=== PATIENT | female | born 1985 | race Hispanic/Latino ===

== ENCOUNTER 2016-12-28 15:36 | Emergency (ER) | payer MEDICARE, MEDICAID ==
[2016-12-28 16:40] VITALS: BP 144/78; O2SAT 99
--- NOTE | 2016-12-28 16:43 | ED.PDOC ---
History of Present Illness - General Chief Complaint: Head Injury Stated Complaint: CASTREJON Time Seen by Provider: 12/28/16 16:37 Source: patient, family Exam Limitations: no limitations Additional Information: PT WAS RUNNING LAST PM. WOKE UP ON THE GROUND, CANNOT REMEMBER WHAT HAPPENED TO HER. C/O PAIN TO KNEE (R) CASTREJON, N/V - History of Present Illness Timing/Duration: other - LAST PM Severity: moderate Improving Factors: nothing Worsening Factors: nothing Associated Symptoms: headaches, nausea/vomiting, seizure - +/- PT IS UNSURE Allergies/Adverse Reactions: Allergies Pineapples Allergy (Uncoded 12/14/12 22:55) Home Medications: Ambulatory Orders Clonazepam [Klonopin] 1 mg PO BID #2 07/18/14 predniSONE [Prednisone] 40 mg PO DAILY #8 tab 04/29/15 Acetaminophen W/ Codeine [Tylenol W/ CODEINE #3] 1 ea PO Q6HR PRN #24 12/28/16 Review of Systems - Review of Systems Constitutional: Denies: chills, diaphoresis, fever EENTM: Denies: eye pain, blurred vision, ear pain, nose congestion Respiratory: Denies: cough, short of breath, wheezing Cardiology: Denies: chest pain, palpitations Gastrointestinal/Abdominal: States: nausea, vomiting. Denies: abdominal pain Musculoskeletal: States: joint pain. Denies: back pain, neck pain Neurological: States: headache. Denies: numbness, tingling, weakness Endocrine: Denies: excessive sweating, intolerance to cold, intolerance to heat Hematologic/Lymphatic: States: no symptoms reported Past Medical History (General) - Patient Medical History Hx Seizures: Yes Hx Asthma: Yes Hx Cardiac Disorders: Yes Hx Hypertension: Yes Hx Diabetes: Yes Hx Gastroesophageal Reflux: Yes - Vaccination History Hx Tetanus, Diphtheria Vaccination: Yes - Social History Hx Tobacco Use: Yes Hx Depression: Yes - Female History Hx Last Menstrual Period: 04/26/15 Patient : No Family Medical History - Family History Mother Family History: No Known Physical Exam - Physical Exam General Appearance: Alert, No apparent distress, Obese Eye Exam: bilateral normal Ears, Nose, Throat: normal ENT inspection, normal pharynx, other - NO EVIDENCE OF TRAUMA Neck: non-tender, full range of motion, supple, normal inspection Respiratory: lungs clear, normal breath sounds, no respiratory distress Cardiovascular/Chest: regular rate, rhythm, no murmur Gastrointestinal/Abdominal: normal bowel sounds, non tender, soft, no organomegaly Back Exam: normal inspection, no CVA tenderness, no vertebral tenderness Extremity: normal range of motion, non-tender, normal inspection, other - ABRASION TO R KNEE, MILD SWELLING, TTP, NO EFFUSION, NO BONY DEF, NVI Neurologic: no motor/sensory deficits, normal mood/affect, oriented x 3 Skin Exam: normal color, warm/dry Lymphatic: no adenopathy Progress - Progress Progress: 12/28/16 20:13 STILL C/O CASTREJON AND NAUSEA, - EKG/XRAY/CT XRAY: knee - ANGELLA CT Ordered: Yes - HEAD, C SPINE CT Interpretation Call Back: - BOTH NEG PER RADIOLOGY Departure - Departure Clinical Impression: Abrasion, knee Qualifiers: Encounter type: initial encounter Laterality: right Qualifier Code: (S80.211A) Abrasion, right knee, initial encounter Diabetes mellitus Qualifiers: Diabetes mellitus type: type 2 Diabetes mellitus complication status: without complication Qualifier Code: (E11.9) Type 2 diabetes mellitus without complications Contusion of scalp Qualifiers: Encounter type: initial encounter Qualifier Code: (S00.03XA) Contusion of scalp , initial encounter Time of Disposition: 20:19 Disposition: Discharge to Home or Self Care Condition: Good Departure Forms: ED Discharge - Pt. Copy, Patient Portal Self Enrollment Instructions: DI for Contusion Activity: increase activity as tolerated, walking as tolerated Prescriptions: Acetaminophen W/ Codeine [Tylenol W/ CODEINE #3] 1 ea PO Q6HR PRN #24 PRN Reason: Pain Home Medications: Ambulatory Orders Clonazepam [Klonopin] 1 mg PO BID #2 07/18/14 predniSONE [Prednisone] 40 mg PO DAILY #8 tab 04/29/15 Acetaminophen W/ Codeine [Tylenol W/ CODEINE #3] 1 ea PO Q6HR PRN #24 12/28/16
[2016-12-28] MEDS ORDERED: SODIUM CHLORIDE 0.9% 1000ML 1,000 ML IVS ONE (16:54)
[2016-12-28] MEDS ORDERED: MORPHINE SULFATE INJ 10 MG/ML VIAL IV ONE (16:56)
[2016-12-28] MEDS ORDERED: INSULIN, REG.(HUMAN) 100 U/ML VIAL SUBCU ONE (16:57)
[2016-12-28] MEDS ORDERED: ONDANSETRON INJ 4 MG/2 ML VIAL IV ONE (16:57)
--- NOTE | 2016-12-28 18:33 | CT ---
EXAM: Cervical Spine CLINICAL INDICATION: 31-year-old female status post fall. TECHNIQUE: Cervical spine CT was performed without contrast. Multiplanar reformatted images were provided. COMPARISON: None. FINDINGS: There is normal alignment of the cervical spine without fracture or subluxation. The facets are normal in alignment bilaterally. The posterior elements including the spinous processes are intact. Straightening of the cervical spine which may be secondary to positioning for the examination. Morphology and attenuation of the vertebral bodies and intervertebral disc spaces is within normal limits. The pre-and paravertebral soft tissues are within normal limits. The airway is patent. Extraspinal imaging is within normal limits. IMPRESSION: 1. Straightening of the cervical spine which may be secondary to positioning for the examination versus spasm. 2. No fracture or acute subluxation. Electronically signed by: Vero Huang MD 12/28/2016 6:33 PM MERCHANDISE CLERK
--- NOTE | 2016-12-28 18:35 | RAD ---
EXAM: Knee,Right 2 or More Views CLINICAL INDICATION: 31-year-old female status post fall. TECHNIQUE: Two views RIGHT knee were obtained in AP, and lateral projections COMPARISON: None. FINDINGS: There is no fracture or dislocation. The joint spaces are preserved. No soft tissue abnormalities are seen. Minimal degenerative changes noted with sharpening of the tibial spines and tiny tricompartmental osteophytes. IMPRESSION: No acute radiographic abnormality. Electronically signed by: Vero Huang MD 12/28/2016 6:34 PM SENIOR INFORMATION SECURITY CONSULTANT
[2016-12-28] MEDS ORDERED: KETOROLAC TROMETHAMINE INJ 30 MG/ML VIAL IV ONE (20:12)
--- NOTE | 2017-01-07 00:16 | CT ---
EXAM: Head CLINICAL INDICATION: 31-year-old female status post fall. COMPARISON: None. TECHNIQUE: CT brain without contrast. FINDINGS: The ventricles, sulci, and cisterns are within normal limits. The rajput-white matter differentiation is preserved. There is no mass effect, midline shift, intra- or extra-axial fluid collection/acute hemorrhage. The osseous structures are unremarkable. The paranasal sinuses and mastoid air cells are clear. IMPRESSION: No acute intracranial abnormalities. Electronically signed by: Vero Huang MD 12/28/2016 6:34 PM ELECTRICAL INSTRUMENT TECHNICIAN
--- NOTE | 2017-01-07 00:16 | RAD ---
EXAM: Knee,Right 2 or More Views CLINICAL INDICATION: 31-year-old female status post fall. TECHNIQUE: Two views RIGHT knee were obtained in AP, and lateral projections COMPARISON: None. FINDINGS: There is no fracture or dislocation. The joint spaces are preserved. No soft tissue abnormalities are seen. Minimal degenerative changes noted with sharpening of the tibial spines and tiny tricompartmental osteophytes. IMPRESSION: No acute radiographic abnormality. Electronically signed by: Vero Huang MD 12/28/2016 6:34 PM RETAIL PHARMACY MANAGER
== END 2016-12-28 20:47 | disposition home or self-care (01) ==
LOC: ER 15:36
DX: S00.03XA Contusion of scalp, initial encounter (principal); S80.211A Abrasion, right knee, initial encounter; E11.9 Type 2 diabetes mellitus without complications; F32.9 Major depressive disorder, single episode, unspecified; I10 Essential (primary) hypertension; K21.9 Gastro-esophageal reflux disease without esophagitis; R56.9 Unspecified convulsions; Z87.891 Personal history of nicotine dependence; Z91.018 Allergy to other foods; Z79.899 Other long term (current) drug therapy
CPT/HCPCS: 36415; 36600; 70450; 72125; 73560; 80053; 81001; 82803; 82805; 82948; 84703; 85025; J1885; J2270; J2405; J7030

== ENCOUNTER 2017-01-23 15:31 | Emergency (ER) | payer MEDICARE, MEDICAID ==
[2017-01-23 15:55] VITALS: TEMP 98.1
[2017-01-23] MEDS ORDERED: SODIUM CHLORIDE 0.9% 1000ML 1,000 ML IVS ONE (16:14)
[2017-01-23] MEDS ORDERED: ONDANSETRON INJ 4 MG/2 ML VIAL IV ONE (16:14)
--- NOTE | 2017-01-23 17:10 | ED.PDOC ---
History of Present Illness - General Chief Complaint: GI Problem Stated Complaint: fever, bodyaches, nausea and vomiting Time Seen by Provider: 01/23/17 15:55 Source: patient, RN notes reviewed, Vital Signs reviewed Exam Limitations: no limitations - History of Present Illness Initial Comments: Patient is a 31 y/o female who has had nausea and vomiting for the past 2 days. The entire family has had a GI bug, however her illness continues. The last time she threw up was 3 hours ago. She had a fever of 100.0 yesterday. She has a headache, sore throat, diarrhea, abdominal pain, back pain, and a nodule on her back that seems to have grown larger in the past 2 days. Timing/Duration: other - 2 days Severity: moderate Improving Factors: nothing Worsening Factors: eating Associated Symptoms: chest pain, cough, fever/chills, headaches, loss of appetite, malaise, nausea/vomiting, shortness of breath, weakness Allergies/Adverse Reactions: Allergies Pineapples Allergy (Uncoded 01/23/17 15:55) Home Medications: Ambulatory Orders Clonazepam [Klonopin] 1 mg PO BID #2 07/18/14 predniSONE [Prednisone] 40 mg PO DAILY #8 tab 04/29/15 Acetaminophen W/ Codeine [Tylenol W/ CODEINE #3] 1 ea PO Q6HR PRN #24 12/28/16 Ondansetron [Zofran Odt] 4 mg PO Q8H PRN #10 tab 01/23/17 Review of Systems - Review of Systems Constitutional: States: chills, fever, malaise, weakness EENTM: States: ear pain, nose congestion, throat swelling Respiratory: States: cough, short of breath Cardiology: States: chest pain Gastrointestinal/Abdominal: States: abdominal pain, diarrhea, nausea, vomiting Genitourinary: States: no symptoms reported Musculoskeletal: States: back pain, joint pain, muscle pain, neck pain Skin: States: lumps, other - sensitive to touch Neurological: States: headache, numbness, paresthesia, pre-existing deficit, tingling, weakness Endocrine: States: intolerance to cold, intolerance to heat, unexplained weight loss - Although Patient has tried to increase exercise and diet. Hematologic/Lymphatic: States: easy bruising Past Medical History (General) - Patient Medical History Hx Seizures: Yes Hx Asthma: Yes Hx Cardiac Disorders: Yes Hx Hypertension: Yes Hx Diabetes: Yes - type 1 Hx Gastroesophageal Reflux: Yes - Vaccination History Hx Tetanus, Diphtheria Vaccination: No Hx Influenza Vaccination: No Hx Pneumococcal Vaccination: No - Social History Hx Tobacco Use: Yes Hx Alcohol Use: No Hx Substance Use: No Hx Substance Use Treatment: No Hx Depression: Yes - Activities of Daily Living Hospice Agency (if applicable):: None - Female History Patient is a Female of Child Bearing Age (10 -59 yrs old): Yes Hx Last Menstrual Period: 04/26/15 Patient : - lmp unknow "I'm irregular" Family Medical History - Family History Mother Family History: No Known Physical Exam - Physical Exam General Appearance: Alert, Comfortable, No apparent distress Ears, Nose, Throat: hearing grossly normal, normal ENT inspection, normal pharynx Neck: non-tender, full range of motion, supple, normal inspection Respiratory: lungs clear, normal breath sounds, no respiratory distress, no accessory muscle use Cardiovascular/Chest: regular rate, rhythm, no edema, no gallop, no murmur Gastrointestinal/Abdominal: normal bowel sounds, soft, no organomegaly, no pulsatile mass, tenderness - generalized Back Exam: normal inspection Extremity: normal range of motion, non-tender, normal inspection, no pedal edema Neurologic: alert, normal mood/affect, oriented x 3 Skin Exam: other - Nodule left mid-back, soft, nontender Progress - Progress Progress: 01/23/17 17:55 Patient was given Zofran and a liter of NS. She did not throw up during her ED stay and did feel better at the time of discharge. Because of her Type 1 diabetes, I informed her that if she did not improve or started getting worse, she needed to come back to the ED. Offered Patient insulin injection, however she prefers to take it when she gets home. 01/23/17 18:12 - Results/Orders Results/Orders: 01/23/17 01/23/17 15:45 17:50 Temperature 98.1 F Pulse Rate [ 122 H 89 pulse ox] Respiratory 20 20 Rate Blood Pressure 122/83 105/73 [Left Arm] O2 Sat by Pulse 96 98 Oximetry 01/23/17 16:25 STREP A SCREEN CULTURE Stat Laboratory Results WBC 8.2 K/mm3 (4.8-10.8) 01/23/17 16:40 RBC 4.35 M/mm3 (4.20-5.40) 01/23/17 16:40 Hgb 13.9 gm/dL (12.0-16.0) 01/23/17 16:40 Hct 39.5 % (36.0-47.0) 01/23/17 16:40 MCV 90.8 fl (81.0-99.0) 01/23/17 16:40 MCH 31.9 pg (27.0-31.0) H 01/23/17 16:40 MCHC 35.2 g/dL (33.0-37.0) 01/23/17 16:40 RDW 13.4 % (11.5-14.5) 01/23/17 16:40 Plt Count 284 K/mm3 (130-400) 01/23/17 16:40 MPV 7.5 fl (7.40-10.4) 01/23/17 16:40 Absolute Neuts (auto) 4.60 K/uL (1.8-6.8) 01/23/17 16:40 Absolute Lymphs (auto) 3.20 K/uL (1.0-3.4) 01/23/17 16:40 Absolute Monos (auto) 0.30 K/uL (0.2-0.8) 01/23/17 16:40 Absolute Eos (auto) 0.00 K/uL (0.0-0.4) 01/23/17 16:40 Absolute Basos (auto) 0.00 K/uL (0.0-0.1) 01/23/17 16:40 Neutrophils % 56.1 % (42.0-78.0) 01/23/17 16:40 Lymphocytes % 39.2 % (20.0-50.0) 01/23/17 16:40 Monocytes % 3.7 % (2.0-9.0) 01/23/17 16:40 Eosinophils % 0.4 % (1.0-5.0) L 01/23/17 16:40 Basophils % 0.6 % (0.0-2.0) 01/23/17 16:40 Sodium 132 mmol/L (135-145) L 01/23/17 16:40 Potassium 3.9 mmol/L (3.6-5.0) 01/23/17 16:40 Chloride 93 mmol/L (101-111) L 01/23/17 16:40 Carbon Dioxide 28 mmol/L (21-31) 01/23/17 16:40 Anion Gap 14.9 (12-18) 01/23/17 16:40 BUN 11 mg/dL (7-18) 01/23/17 16:40 Creatinine 0.48 mg/dL (0.6-1.3) L 01/23/17 16:40 BUN/Creatinine Ratio 22.9 (10-20) H 01/23/17 16:40 Random Glucose 348 mg/dL (70-105) H 01/23/17 16:40 Serum Osmolality 277.8 mOsm/L (275-295) 01/23/17 16:40 Calcium 9.3 mg/dL (8.4-10.2) 01/23/17 16:40 Total Bilirubin < 0.2 mg/dL (0.2-1.0) L 01/23/17 16:40 AST 23 IU/L (10-42) 01/23/17 16:40 ALT 22 IU/L (10-60) 01/23/17 16:40 Alkaline Phosphatase 79 IU/L (42-121) 01/23/17 16:40 Serum Total Protein 7.2 gm/dL (6.4-8.2) 01/23/17 16:40 Albumin 3.9 g/dl (3.2-5.5) 01/23/17 16:40 Globulin 3.3 gm/dL (2.3-3.5) 01/23/17 16:40 Albumin/Globulin Ratio 1.2 (1.1-1.9) 01/23/17 16:40 Lipase 20 U/L (22-51) L 01/23/17 16:40 Serum HCG, Qual Negative 01/23/17 16:25 Urine Color Yellow (Yellow) 01/23/17 16:25 Urine Appearance Clear (Clear) 01/23/17 16:25 Urine pH 5.5 (4.5-7.8) 01/23/17 16:25 Ur Specific [place] 1.020 (1.005-1.030) 01/23/17 16:25 Urine Protein Negative mg/dL 01/23/17 16:25 Urine Glucose (UA) 500 mg/dL (Negative) H 01/23/17 16:25 Urine Ketones 15 mg/dL (NEGATIVE) H 01/23/17 16:25 Urine Blood Negative (Negative) 01/23/17 16:25 Urine Nitrite Negative 01/23/17 16:25 Urine Bilirubin Negative (NEGATIVE) 01/23/17 16:25 Urine Urobilinogen 0.2 mg/dL (0.2-1.0) 01/23/17 16:25 Ur Leukocyte Esterase Negative (Negative) 01/23/17 16:25 Urine RBC 0-1 /hpf 01/23/17 16:25 Urine WBC 0-1 /hpf 01/23/17 16:25 Ur Epithelial Cells 3-5 /hpf 01/23/17 16:25 Amorphous Sediment 1+ 01/23/17 16:25 Urine Bacteria 0 01/23/17 16:25 Departure - Departure Clinical Impression: Gastroenteritis, Dehydration with hyponatremia, Dehydration with hyponatremia, Dehydration, mild Diabetes mellitus Qualifiers: Diabetes mellitus type: type 1 Diabetes mellitus complication status: with hyperglycemia Qualifier Code: (E10.65) Type 1 diabetes mellitus with hyperglycemia Time of Disposition: 17:59 Disposition: Discharge to Home or Self Care Condition: Good Departure Forms: ED Discharge - Pt. Copy, Patient Portal Self Enrollment Instructions: DI for Viral Gastroenteritis -- Adult, Gastroenteritis Diet, Viral Gastroenteritis Diet: full liquid diet, other - Advance to BRAT diet as tolerated. Prescriptions: Ondansetron [Zofran Odt] 4 mg PO Q8H PRN #10 tab PRN Reason: Nausea/Vomiting Home Medications: Ambulatory Orders Clonazepam [Klonopin] 1 mg PO BID #2 07/18/14 predniSONE [Prednisone] 40 mg PO DAILY #8 tab 04/29/15 Acetaminophen W/ Codeine [Tylenol W/ CODEINE #3] 1 ea PO Q6HR PRN #24 12/28/16 Ondansetron [Zofran Odt] 4 mg PO Q8H PRN #10 tab 01/23/17 Additional Instructions: Stay well-hydrated. Drink one bottle of sport drink any day you have vomiting or diarrhea. Follow up if symptoms persist or worsen. Glucose is 348 so take sliding scale insulin accordingly when you get home.
[2017-01-23 17:51] VITALS: O2SAT 98
[2017-01-23 18:23] VITALS: BP 112/68
== END 2017-01-23 18:23 | disposition home or self-care (01) ==
LOC: ER 15:31
DX: K52.9 Noninfective gastroenteritis and colitis, unspecified (principal); E87.1 Hypo-osmolality and hyponatremia; E86.0 Dehydration; E10.65 Type 1 diabetes mellitus with hyperglycemia; I10 Essential (primary) hypertension; J45.909 Unspecified asthma, uncomplicated; Z91.018 Allergy to other foods; Z79.899 Other long term (current) drug therapy; Z87.891 Personal history of nicotine dependence
CPT/HCPCS: 36415; 80053; 81001; 83690; 84703; 85025; 87070; 87502; 87651; J2405; J7030

== ENCOUNTER 2017-01-25 09:50 | Emergency (ER) | payer MEDICARE, MEDICAID ==
[2017-01-25] MEDS ORDERED: SODIUM CHLORIDE 0.9% 1000ML 1,000 ML IVS ONE (10:35)
[2017-01-25 10:36] VITALS: TEMP 98.1
--- NOTE | 2017-01-25 10:39 | ED.PDOC ---
History of Present Illness - General Chief Complaint: General Stated Complaint: aches, "feels bad" still, nausea Time Seen by Provider: 01/25/17 10:23 Source: patient Exam Limitations: no limitations - History of Present Illness Initial Comments: Patient is a 31 you F with IDDM who presents with N/V x 5 days and diarrhea x 2 days. She was here 2 days ago for the same and prescribed zofran and received fluids. She is non-compliant with her diabetes treatment regimen and does not take her blood sugars regularly. She says she has a "tumor" on her left side that was noticed one year ago but has not followed up with it as recommended. Patient has been able to eat but thinks that she vomits a significant amount of her food up. Has left sided abdominal pain that is constant and has been associated with this episode of N/V. Diarrhea is non-bloody. No fevers. No other complaints. Timing/Duration: other - 5 days Severity: moderate Improving Factors: nothing Worsening Factors: nothing Associated Symptoms: nausea/vomiting, weakness Allergies/Adverse Reactions: Allergies Pineapples Allergy (Uncoded 01/23/17 15:55) Home Medications: Ambulatory Orders Clonazepam [Klonopin] 1 mg PO BID #2 07/18/14 predniSONE [Prednisone] 40 mg PO DAILY #8 tab 04/29/15 Acetaminophen W/ Codeine [Tylenol W/ CODEINE #3] 1 ea PO Q6HR PRN #24 12/28/16 Ondansetron [Zofran Odt] 4 mg PO Q8H PRN #10 tab 01/23/17 Ciprofloxacin [Cipro] 500 mg PO BID #20 tab 01/25/17 Metronidazole 500 mg PO BID #20 tab 01/25/17 Review of Systems - Review of Systems Constitutional: States: see HPI EENTM: States: no symptoms reported Respiratory: States: no symptoms reported Cardiology: States: no symptoms reported Genitourinary: States: see HPI Musculoskeletal: States: no symptoms reported Skin: States: no symptoms reported Neurological: States: no symptoms reported Endocrine: States: no symptoms reported Hematologic/Lymphatic: States: no symptoms reported Past Medical History (General) - Patient Medical History Hx Seizures: Yes Hx Asthma: Yes Hx Cardiac Disorders: Yes Hx Hypertension: Yes Hx Diabetes: Yes - type 1 Hx Gastroesophageal Reflux: Yes - Vaccination History Hx Tetanus, Diphtheria Vaccination: No Hx Influenza Vaccination: No Hx Pneumococcal Vaccination: No - Social History Hx Tobacco Use: Yes Hx Alcohol Use: No Hx Substance Use: No Hx Substance Use Treatment: No Hx Depression: Yes - Female History Hx Last Menstrual Period: 04/26/15 Patient : - lmp unknow "I'm irregular" Family Medical History - Family History Mother Family History: No Known Physical Exam - Physical Exam General Appearance: Alert Eye Exam: bilateral normal Ears, Nose, Throat: normal ENT inspection Neck: non-tender, full range of motion, supple, normal inspection Respiratory: lungs clear Cardiovascular/Chest: regular rate, rhythm Gastrointestinal/Abdominal: normal bowel sounds, non tender, soft Extremity: normal inspection, no pedal edema Skin Exam: normal color Lymphatic: no adenopathy Progress - Progress Progress: 01/25/17 15:25 Patient continued to complain of LLQ pain. She had one liter of NS IV. CT ab/ pelvis showed colitis of the transverse and descending colon. RX for ciprofloxacin and metronidazole given. 01/25/17 15:26 Laboratory Tests 01/25/17 10:45 WBC 7.9 RBC 4.43 Hgb 13.9 Hct 40.2 MCV 90.7 MCH 31.4 H MCHC 34.6 RDW 13.3 Plt Count 236 MPV 7.3 L Absolute Neuts (auto) 6.10 Absolute Lymphs (auto) 1.40 Absolute Monos (auto) 0.40 Absolute Eos (auto) 0.00 Absolute Basos (auto) 0.00 Neutrophils % 77.8 Lymphocytes % 17.1 L Monocytes % 4.5 Eosinophils % 0.2 L Basophils % 0.4 Sodium 133 L Potassium 3.7 Chloride 93 L Carbon Dioxide 28 Anion Gap 15.7 BUN 9 Creatinine < 0.40 L BUN/Creatinine Ratio 22.0 H Random Glucose 295 H Serum Osmolality 276.0 Calcium 9.3 Total Bilirubin 0.9 AST 19 ALT 24 Alkaline Phosphatase 92 Serum Total Protein 8.0 Albumin 4.3 Globulin 3.7 H Albumin/Globulin Ratio 1.2 Lipase 15 L D Serum HCG, Qual Negative Departure - Departure Clinical Impression: Colitis Departure Forms: ED Discharge - Pt. Copy, Patient Portal Self Enrollment Diet: diabetic diet Activity: increase activity as tolerated Prescriptions: Ciprofloxacin [Cipro] 500 mg PO BID #20 tab Metronidazole 500 mg PO BID #20 tab Home Medications: Ambulatory Orders Clonazepam [Klonopin] 1 mg PO BID #2 07/18/14 predniSONE [Prednisone] 40 mg PO DAILY #8 tab 04/29/15 Acetaminophen W/ Codeine [Tylenol W/ CODEINE #3] 1 ea PO Q6HR PRN #24 12/28/16 Ondansetron [Zofran Odt] 4 mg PO Q8H PRN #10 tab 01/23/17 Ciprofloxacin [Cipro] 500 mg PO BID #20 tab 01/25/17 Metronidazole 500 mg PO BID #20 tab 01/25/17 Additional Instructions: Take medication as prescribed. Do not drink alcohol while taking the medication or for at least ten days after stopping the medication. Increase oral fluids.
[2017-01-25] MEDS: IBUPROFEN 200 MG TAB PO ONE ×2 (10:47→11:02)
[2017-01-25] MEDS ORDERED: IBUPROFEN IVPB ONE (11:01)
[2017-01-25] MEDS ORDERED: SODIUM CHLORIDE 0.9% IVPB ONE (11:01)
[2017-01-25] MEDS ORDERED: SODIUM CHLORIDE 0.9% 250ML 250 ML ONE (11:09)
[2017-01-25] MEDS ORDERED: KCL 20 MEQ/NS 1,000 ML IVS PRN (12:12)
--- NOTE | 2017-01-25 15:18 | CT ---
Study: CT abdomen and pelvis. Indication: abdominal pain/N/V Technique: Venous phase CT imaging of the abdomen and pelvis obtained after intravenous administration of contrast. Comparison: None. Findings: Mild cardiomegaly. Lung bases clear. Mild hepatomegaly. Gallbladder, pancreas, spleen, adrenal glands, kidneys, bladder, uterus, and adnexa are unremarkable. Minimal wall thickening throughout the descending colon and transverse colon calculates under distention or colitis. Stomach, small bowel, and appendix unremarkable. No free fluid. No free air. No pathologically enlarged abdominal or pelvic lymphadenopathy. Atherosclerosis aorta. Tiny fat-containing umbilical hernia. No acute osseous abnormality. Impression: Findings concerning for colitis of the descending and transverse colon, however underdistention could give this appearance. Additional findings as above. Electronically signed by: Ronny Willingham MD 01/25/2017 3:17 PM CDT
[2017-01-25] MEDS ORDERED: KETOROLAC TROMETHAMINE INJ 30 MG/ML VIAL IM ONE (16:04)
[2017-01-25 16:30] VITALS: BP 112/79; O2SAT 96
== END 2017-01-25 16:20 | disposition home or self-care (01) ==
LOC: ER 09:50
DX: K52.9 Noninfective gastroenteritis and colitis, unspecified (principal); E10.9 Type 1 diabetes mellitus without complications; I10 Essential (primary) hypertension; G40.909 Epilepsy, unspecified, not intractable, without status epilepticus; J45.909 Unspecified asthma, uncomplicated; Z91.018 Allergy to other foods; Z79.899 Other long term (current) drug therapy; Z87.891 Personal history of nicotine dependence
CPT/HCPCS: 36415; 74177; 80048; 80053; 83690; 84703; 85025; 87502; 87651; J1885; J3480; J7030; J7050

== ENCOUNTER 2017-02-10 19:03 | Observation (INO) | payer MEDICARE, MEDICAID ==
[2017-02-10] MEDS ORDERED: NITROGLYCERIN 0.4 MG 25 EA TAB SL ONE ×3 (19:07→19:09)
[2017-02-10] MEDS ORDERED: diazePAM INJ 10 MG/2 ML SYG ONE (19:08)
[2017-02-10] MEDS ORDERED: diazePAM INJ 10 MG/2 ML SYG IV ONE (19:25)
[2017-02-10] MEDS ORDERED: NITROGLYCERIN 2% 1 GM UD TOP ONE (19:45)
--- NOTE | 2017-02-10 19:52 | RAD ---
EXAM DESCRIPTION: Chest,1 View CLINICAL HISTORY: chest pain COMPARISON: None FINDINGS: Cardiac silhouette is within normal limits. EKG leads project over the chest. Patient is rotated. Decreased lung volumes could be secondary to underinflation. There is no focal parenchymal or pleural disease. There is no acute osseous process visualized. IMPRESSION: No evidence of acute cardiopulmonary disease. Electronically signed by: Estrada Olivares MD 02/10/2017 7:51 PM CDT
--- NOTE | 2017-02-10 20:19 | ED.PDOC ---
History of Present Illness - General Chief Complaint: Chest Pain/[place] Stated Complaint: CHEST PAIN Time Seen by Provider: 02/10/17 19:58 Source: patient, RN notes reviewed, Vital Signs reviewed, family, EMS Exam Limitations: clinical condition - History of Present Illness Initial Comments: Patient is a 31 y/o female who was brought in by EMS with severe left-sided chest pain. It is difficult to get any information from patient as she is very anxious. [id number] she has a history of seizures and bipolar disorder and has been out of her tegretol for the past 3 days. She has recently changed doctors, but got most of her chronic medication filled on 01/25/2017. Patient has been taking a diet medication for the past week. It is a yellow and black capsule that she bought from a lady that is in a bottle with a white paper label on it. Patient is a very poor historian and it is difficult to get definitive answers from her about her health and medications. Her helps, somewhat, but is not sure exactly what and how much medication she takes. Timing/Duration: unsure Severity: severe Improving Factors: nothing Worsening Factors: nothing Associated Symptoms: chest pain, nausea/vomiting, shortness of breath Allergies/Adverse Reactions: Allergies Pineapples Allergy (Uncoded 02/10/17 19:24) Home Medications: Ambulatory Orders Carbamazepine [Tegretol] 600 mg PO BID 01/27/17 Insulin Detemir [Levemir] 0 unit SUBCU BID 01/27/17 Insulin Regular (Human) [Humulin R] 0 unit IJ QID PRN 01/27/17 Lisinopril & Hydrochlorothiazi [Lisinopril/Hctz 20-25 mg] 1 tab PO BID 01/27/17 Lovastatin 20 mg PO DAILY 01/27/17 Amitriptyline HCl [Elavil] 25 mg PO DAILY 02/10/17 Celecoxib [Celebrex] 200 mg PO BID 02/10/17 Clonazepam 2 mg PO TID 02/10/17 Lisinopril 20 mg PO BEDTIME 02/10/17 Pregabalin [Lyrica] 100 mg PO BID 02/10/17 Review of Systems - Review of Systems Constitutional: States: no symptoms reported EENTM: States: no symptoms reported Respiratory: States: short of breath Cardiology: States: chest pain, palpitations Gastrointestinal/Abdominal: States: nausea Genitourinary: States: no symptoms reported Musculoskeletal: States: back pain, neck pain Skin: States: no symptoms reported Neurological: States: anxiety Endocrine: States: no symptoms reported Hematologic/Lymphatic: States: no symptoms reported All other Systems: Reviewed and Negative Past Medical History (General) - Patient Medical History Hx Seizures: Yes Hx Stroke: No Hx Asthma: Yes Hx Cardiac Disorders: Yes Hx Hypertension: Yes Hx Diabetes: Yes - type 1 Hx Gastroesophageal Reflux: Yes - Vaccination History Hx Tetanus, Diphtheria Vaccination: No Hx Influenza Vaccination: No Hx Pneumococcal Vaccination: No - Social History Hx Tobacco Use: Yes Hx Alcohol Use: No Hx Substance Use: No Hx Substance Use Treatment: No Hx Depression: Yes - Female History Hx Last Menstrual Period: 04/26/15 Patient : - lmp unknow "I'm irregular" Family Medical History - Family History Mother Family History: No Known Living Status: Still Living Physical Exam - Physical Exam General Appearance: Anxious, Obvious distress, Obese, Unkempt Eye Exam: bilateral normal Ears, Nose, Throat: hearing grossly normal, normal ENT inspection Neck: tender lateral - Left Respiratory: lungs clear, normal breath sounds, no respiratory distress, no accessory muscle use, other - Left chest tenderness, however does not exactly replicate pain Cardiovascular/Chest: no gallop, no murmur, tachycardia Gastrointestinal/Abdominal: normal bowel sounds, non tender, soft, no organomegaly Extremity: normal range of motion, normal inspection Neurologic: alert, oriented x 3, depressed affect Skin Exam: normal color, warm/dry Progress - Results/Orders Results/Orders: 02/10/17 02/10/17 02/10/17 19:05 19:10 20:05 Temperature 100.2 F H Pulse Rate [ 131 H 135 H 92 H apical] Respiratory 32 H 32 H 20 Rate Blood Pressure 135/69 125/83 [left radial] 02/10/17 02/10/17 02/10/17 20:26 21:19 22:00 Temperature Pulse Rate [ 112 H 105 H 106 H apical] Respiratory 20 18 Rate Blood Pressure 122/89 113/62 119/77 [left radial] 02/10/17 22:14 Temperature Pulse Rate [ 98 H apical] Respiratory 18 Rate Blood Pressure 123/84 [left radial] 02/10/17 19:05 EKG STAT 02/10/17 19:30 EKG STAT 02/10/17 22:02 URINE DRUG SCREEN, 7 ASSAY Stat 02/10/17 22:15 EKG STAT 02/10/17 22:17 CARDIAC ENZYME GROUP Stat 02/10/17 22:44 Magnesium Sulfate Premix 2Gm 2 gm Premix Bag 1 bag IVPB ONCE Laboratory Results WBC 9.8 K/mm3 (4.8-10.8) 02/10/17 19:20 RBC 4.40 M/mm3 (4.20-5.40) 02/10/17 19:20 Hgb 13.7 gm/dL (12.0-16.0) 02/10/17 19:20 Hct 39.8 % (36.0-47.0) 02/10/17 19:20 MCV 90.5 fl (81.0-99.0) 02/10/17 19:20 MCH 31.1 pg (27.0-31.0) H 02/10/17 19:20 MCHC 34.4 g/dL (33.0-37.0) 02/10/17 19:20 RDW 13.5 % (11.5-14.5) 02/10/17 19:20 Plt Count 310 K/mm3 (130-400) 02/10/17 19:20 MPV 7.7 fl (7.40-10.4) 02/10/17 19:20 Absolute Neuts (auto) 5.70 K/uL (1.8-6.8) 02/10/17 19:20 Absolute Lymphs (auto) 3.70 K/uL (1.0-3.4) H 02/10/17 19:20 Absolute Monos (auto) 0.40 K/uL (0.2-0.8) 02/10/17 19:20 Absolute Eos (auto) 0.00 K/uL (0.0-0.4) 02/10/17 19:20 Absolute Basos (auto) 0.10 K/uL (0.0-0.1) 02/10/17 19:20 Neutrophils % 57.7 % (42.0-78.0) 02/10/17 19:20 Lymphocytes % 37.5 % (20.0-50.0) 02/10/17 19:20 Monocytes % 3.9 % (2.0-9.0) 02/10/17 19:20 Eosinophils % 0.4 % (1.0-5.0) L 02/10/17 19:20 Basophils % 0.5 % (0.0-2.0) 02/10/17 19:20 PT 12.4 SECONDS (9.4-12.5) 02/10/17 19:20 INR 1.100 02/10/17 19:20 PTT (SP) 29.7 SECONDS (25.1-36.5) 02/10/17 19:20 D-Dimer, Quantitative < 230 ng/mL (0-230) 02/10/17 19:50 Sodium 135 mmol/L (135-145) 02/10/17 19:20 Potassium 3.1 mmol/L (3.6-5.0) L 02/10/17 19:20 Chloride 93 mmol/L (101-111) L 02/10/17 19:20 Carbon Dioxide 27 mmol/L (21-31) 02/10/17 19:20 Anion Gap 18.1 (12-18) H 02/10/17 19:20 BUN 6 mg/dL (7-18) L 02/10/17 19:20 Creatinine 0.43 mg/dL (0.6-1.3) L 02/10/17 19:20 BUN/Creatinine Ratio 14.0 (10-20) 02/10/17 19:20 Random Glucose 266 mg/dL (70-105) H 02/10/17 19:20 Serum Osmolality 277.0 mOsm/L (275-295) 02/10/17 19:20 Calcium 9.6 mg/dL (8.4-10.2) 02/10/17 19:20 Magnesium 1.5 mg/dL (1.8-2.5) L 02/10/17 19:20 Creatine Kinase 32 IU/L (26-140) 02/10/17 22:17 CK-MB (CK-2) 1.5 ng/mL (0.0-4.4) 02/10/17 19:20 CK-MB (CK-2) % Not Reportable 02/10/17 19:20 Troponin I < 0.02 ng/mL (0.01-0.05) 02/10/17 22:17 B-Natriuretic Peptide < 5.0 pg/ml (0-100) 02/10/17 19:50 Carbamazepine < 2.0 ug/mL (4.0-12.0) L 02/10/17 19:20 - EKG/XRAY/CT EKG: Sinus, Tachy - 114, no ST T wave changes, Unchanged from - EKG of 04/28/2015 Comments: NML axis, NML intervals, Sinus tachycardia XRAY: chest Xray Comments: No acute process - Additional EKG/XRAY/Consults EKG #2: Sinus - 92 bpm, nonspecific ST T wave Chg - ? abnormal QRS-T angle, Changed from - EKG #1, now NSR Comments: NML axis, Prolonged QT, Abnormal EKG Departure - Departure Clinical Impression: Hypokalemia, Hypomagnesemia Chest pain Qualifiers: Chest pain type: unspecified Qualifier Code: (R07.9) Chest pain, unspecified Medication withdrawal Qualifiers: Substance type: other psychoactive substance Qualifier Code: (F19.939) Other psychoactive substance use, unspecified with withdrawal, unspecified Diabetes mellitus Qualifiers: Diabetes mellitus type: type 2 Diabetes mellitus complication status: with unspecified complications Qualifier Code: (E11.8) Type 2 diabetes mellitus with unspecified complications Time of Disposition: 22:58 Disposition: Admit Patient Condition: Good Home Medications: Ambulatory Orders Carbamazepine [Tegretol] 600 mg PO BID 01/27/17 Insulin Detemir [Levemir] 0 unit SUBCU BID 01/27/17 Insulin Regular (Human) [Humulin R] 0 unit IJ QID PRN 01/27/17 Lisinopril & Hydrochlorothiazi [Lisinopril/Hctz 20-25 mg] 1 tab PO BID 01/27/17 Lovastatin 20 mg PO DAILY 01/27/17 Amitriptyline HCl [Elavil] 25 mg PO DAILY 02/10/17 Celecoxib [Celebrex] 200 mg PO BID 02/10/17 Clonazepam 2 mg PO TID 02/10/17 Lisinopril 20 mg PO BEDTIME 02/10/17 Pregabalin [Lyrica] 100 mg PO BID 02/10/17 Decision To Admit - Decistion To Admit Decision to Admit Reason: Medical Nature Decision to Admit Date: 02/10/17 Decision to Admit Time: 22:45
[2017-02-10] MEDS ORDERED: MAGNESIUM SULFATE PREMIX 2GM 2 GM in PREMIX BAG 1 BAG IVPB ONE (22:44)
[2017-02-10] MEDS ORDERED: MAGNESIUM SULFATE PREMIX 2GM 50 ML IVPB ONE (23:16)
[2017-02-11] MEDS ORDERED: ACETAMINOPHEN 325 MG TAB PO PRN (00:07)
[2017-02-11] MEDS ORDERED: NITROGLYCERIN 0.4 MG 25 EA TAB SL PRN (00:07)
[2017-02-11] MEDS ORDERED: ASPIRIN (CHEWABLE) 81 MG TAB PO ONE (00:07)
[2017-02-11] MEDS ORDERED: IV SET AND CAP CHANGE INJ INJ SCH (00:30)
[2017-02-11] MEDS ORDERED: carBAMazepine 200 MG TAB PO ONE (02:24)
[2017-02-11] MEDS ORDERED: ZOLPIDEM TARTRATE 10 MG TAB PO PRN (02:24)
[2017-02-11] MEDS ORDERED: DEXTROSE 50% 25 GM/50 ML SYG IV PRN (02:28)
[2017-02-11] MEDS ORDERED: GLUCAGON INJ 1 MG VIAL SUBCU PRN (02:28)
[2017-02-11] MEDS ORDERED: SODIUM CHLORIDE 0.9% 1000ML 1,000 ML ONE (02:55)
[2017-02-11] MEDS ORDERED: POTASSIUM CHLORIDE 40mEq 20ML VIAL ONE (02:56)
[2017-02-11] MEDS ORDERED: NITROGLYCERIN 0.4 MG/HR PATCH TOP SCH (03:00)
[2017-02-11] MEDS: KCL 40MEQ/NS 1,000 ML IVS PRN ×2 (03:12→11:24)
[2017-02-11] MEDS: SODIUM CHLORIDE 0.9% (FLUSH) 10 ML SYG IV PRN ×2 (03:13→06:43)
[2017-02-11] MEDS: PREGABALIN 100 MG CAP PO SCH ×2 (03:14→10:08)
[2017-02-11] MEDS: HYDROcodone 10MG/APAP 325MG 1 EA TAB PO PRN ×3 (03:15→15:12)
[2017-02-11] MEDS: MORPHINE SULFATE INJ 10 MG/ML VIAL IV PRN ×5 (06:44→17:15)
[2017-02-11] MEDS ORDERED: INSULIN, REG.(HUMAN) 100 U/ML VIAL ONE (08:00)
[2017-02-11] MEDS: INSULIN LISPRO 100 UNITS/ML PEN SUBCU SCH ×3 (08:07→17:34)
[2017-02-11] MEDS ORDERED: SODIUM CHLORIDE 0.9% (FLUSH) 10 ML SYG IV SCH (09:00)
[2017-02-11] MEDS ORDERED: KETOROLAC TROMETHAMINE INJ 30 MG/ML VIAL IV ONE (10:26)
[2017-02-11] MEDS ORDERED: AMITRIPTYLINE HCL 25 MG TAB PO SCH (10:30)
[2017-02-11] MEDS ORDERED: NON-FORMULARY MEDICATION 1 EA MIS (Lisinopril & Hydrochlorothiazi [Lisinopril/Hctz 20-25 M PO SCH (10:30)
[2017-02-11] MEDS ORDERED: LORCASERIN HCL 10 MG PO SCH (10:30)
[2017-02-11] MEDS ORDERED: carBAMazepine 200 MG TAB PO SCH (10:30)
[2017-02-11] MEDS ORDERED: CELECOXIB 100 MG CAP PO SCH (10:30)
[2017-02-11] MEDS ORDERED: PREGABALIN 100 MG CAP PO SCH (10:30)
[2017-02-11] MEDS ORDERED: NON-FORMULARY MEDICATION 1 EA MIS (Lovastatin [Lovastatin] 20 MG) PO SCH (10:30)
[2017-02-11] MEDS ORDERED: SODIUM CHLORIDE 0.9% 500ML 500 ML IVS ONE (10:34)
[2017-02-11] MEDS: FUROSEMIDE 40 MG TAB PO SCH ×2 (11:05→17:37)
[2017-02-11] MEDS ORDERED: HYDROmorphone HCL INJ 2 MG/ML VIAL IV ONE (11:09)
[2017-02-11] MEDS ORDERED: hydroCHLOROthiazide 25 MG TAB PO SCH (11:30)
[2017-02-11] MEDS ORDERED: LISINOPRIL 10 MG TAB PO SCH ×2 (11:30→21:00)
--- NOTE | 2017-02-11 11:31 | RAD ---
EXAM DESCRIPTION: Chest,1 View CLINICAL HISTORY: 31 years Female, chest pain IMPRESSION: Portable chest radiograph demonstrates low lung volumes, similar to one day prior. Heart size is unchanged. Prominence of the pulmonary vasculature may be compatible with volume overload. Electronically signed by: Alex Chaney MD 02/11/2017 11:30 AM CDT
--- NOTE | 2017-02-11 13:40 | CT ---
Study: CT angiography of the chest, pulmonary embolus protocol. CT abdomen and pelvis performed as well. Indication: CHEsT pain, SOB Technique: Axial CT images were acquired through the chest after intravenous administration of contrast utilizing the CT angiography, pulmonary embolus protocol. Computer-generated 3D reconstructions (MIPS) were performed and reviewed. Postcontrast CT abdomen and pelvis performed as well. Comparison: January 25, 2017. Findings: Distal pulmonary arteries not well evaluated due to respiratory motion artifact. Given this limitation, no discrete pulmonary embolus identified within the main or proximal aspect of the segmental pulmonary arteries. There is pronounced dilatation of the main pulmonary artery measuring up to 47 mm. Heart size normal. No pathologically enlarged mediastinal or hilar lymphadenopathy. Lungs clear. Fatty infiltration along the falciform ligament of the liver. Gallbladder, pancreas, spleen, adrenal glands, kidneys, bladder, uterus, adnexa unremarkable. Stomach, small bowel, colon, and appendix unremarkable. No free fluid. No free air. No pathologically enlarged abdominal or pelvic lymphadenopathy. Screws are. No acute osseous abnormality. Impression: No CTA evidence of central pulmonary embolus. Distal dilation limited. Significant dilatation of the main pulmonary artery which can indicate pulmonary arterial hypertension or possibly pulmonary artery stenosis and post stenotic dilatation. Echocardiography recommended. Cardiology consultation would prove useful. Mild atherosclerosis. No CT evidence of acute abdominal or pelvic process. Electronically signed by: Ronny Willingham MD 02/11/2017 1:40 PM CDT
[2017-02-11 14:00] VITALS: BP 104/61; TEMP 98.5; O2SAT 99
[2017-02-11] MEDS ORDERED: CYCLOBENZAPRINE HCL 10 MG TAB PO SCH (15:00)
[2017-02-11] MEDS ORDERED: REMOVE OLD PATCH TOP SCH (15:00)
--- NOTE | 2017-02-11 15:40 | SSS ---
SUPERVISING PHYSICIAN: Dedrick Hyatt MD CHIEF COMPLAINT: Chest pain. HISTORY OF PRESENT ILLNESS: Ms. Bullock is a 31-year-old, female patient who was brought to the Emergency Room by EMS on date of admission complaining of severe left sided chest pain. The patient is very histrionic and it is very difficult to obtain information because she remains in quite an anxious state. She notes she just got back from [facility] in the last several weeks and had visited with her friend who gave her some pills, she has no idea what they are, to help with weight loss. She took one of those pills the night before admission and started having chest pains and pounding of her heart. She also has a history of seizures and has bipolar disorder and has been out of her Tegretol for the last three days. She recently changed doctors and was getting most of her chronic medications filled up until 01/25/17. Initial laboratory studies in the Emergency Department included CBC with white count of 9.8 with hemoglobin 13.7, hematocrit 39.8, platelet count within normal limits at 310, 00. Differential was within normal limits. Coagulation studies were normal with PT 12.4, PT-T 29.7, D-dimer less than 230. Initial chemistries in the Emergency Department showed low potassium 3.1 with BUN 6, creatinine 0.43, glucose 266, magnesium 1.5. Initial cardiac enzymes prior to admission to the Medical/Surgical Floor showed troponin times two less than 0.02. BNP was less than 5.0. Pancreatic enzymes were within normal limits. EKG in the Emergency Department showed a sinus tachycardia of 114, but no obvious ST-T wave changes compared to previous EKGs on 04/28/15. Chest x-ray showed no acute processes per radiology interpretation. The Emergency Room physician noted on the second EKG that the patient had heart rate of 92, but noted some nonspecific ST-T wave changes with questionable QRST angle change from EKG initially performed on admission. Given the patient's symptomatology, she was given a nitroglycerin, Valium, and prior to admission to the Medical/Surgical Floor was without any notable chest pains. The patient was placed in observation to further rule out any acute coronary syndrome for continued cancer program consultant and repeat cardiac enzymes. PAST MEDICAL HISTORY: 1. Type 1 diabetes mellitus on insulin. 2. Hypertension. 3. Seizure disorder. 4. Anxiety, depression. 5. Chronic low back pain. 6. Asthma. 7. Rheumatoid arthritis. PAST SURGICAL HISTORY: 1. Neurostimulator to the lumbar region. 2. Tonsils and adenoids. GYNECOLOGIC HISTORY: Last menstrual period is unknown as the patient has irregular menstrual cycles. She is not currently on control, but current serum HCG is negative. CURRENT MEDICATIONS: 1. Tegretol 600 mg twice daily. 2. Insulin Regular Humulin R q.i.d. sliding scale. 3. Ambien 10 mg at bedtime. 4. Promethazine 25 mg q.6h. p.r.n. 5. Cipro 500 mg b.i.d. 6. Zofran 8 mg p.o. q.6h. 7. Metronidazole 500 mg twice daily. 8. Belviq 10 mg daily. 9. Lasix 40 mg b.i.d. 10. Cyclobenzaprine 10 mg t.i.d. 11. Symbicort 1 actuator daily. 12. Losartan 20 mg daily. 13. Lisinopril/hydrochlorothiazide 20/25 mg 1 tablet daily. 14. Lyrica 100 mg twice daily. 15. Lisinopril 20 mg at bedtime. 16. Celebrex 200 mg twice daily. 17. Clonazepam 2 mg 3 times a day. 18. Elavil 25 mg daily. ALLERGIES: PINEAPPLE. FAMILY HISTORY: Unknown. SOCIAL HISTORY: The patient lives in [place]. She is disabled. She notes she smokes socially and has used marijuana occasionally. REVIEW OF SYSTEMS: CONSTITUTIONAL: Denies any fevers, chills. HEENT: Denies nasal congestion, sinus pressure, headaches, visual change. RESPIRATORY: She notes she has shortness of breath with her chest pain, but denies cough. CARDIOVASCULAR: As noted in history of present illness, chest pains, palpitations. GASTROINTESTINAL: She has had some nausea, but denies any abdominal pain, constipation, diarrhea, or any jordyn blood. GENITOURINARY: Denies dysuria, increased frequency. NEUROLOGIC: She has a history of anxiety. PHYSICAL EXAMINATION: VITAL SIGNS: Initial vital signs in the Emergency Department on admission showed the patient to be low grade of 100.2 with heart rate 135, blood pressure 135/69. Respirations 32. O2 saturation 98% on room air. Upon admission to the Medical/Surgical Floor, temperature 97.9, pulse 91, blood pressure 109/73, respirations 16 to 20, O2 saturation 98% on room air. GENERAL: The patient appears to be well hydrated. She is somewhat disheveled and obviously quite anxious, but is comfortable and in no acute distress upon admission to Medical/Surgical Floor. HEENT: Tympanic membranes clear bilaterally. Oropharynx is pink, moist without any lesions. NECK: No jugular venous distention noted. CHEST: Lungs clear to auscultation bilaterally without any rhonchi, wheezes, or rales. She does have some chest wall tenderness on palpation to the anterior mid axillary nipple area. CARDIOVASCULAR: Tachycardic rate without any appreciable murmurs, gallops, or rubs. ABDOMEN: Obese, but soft, nontender. Positive bowel sounds. EXTREMITIES: There is no cyanosis, clubbing or edema. NEUROLOGIC: The patient is alert and oriented times three, quite anxious. Facial features are symmetrical. Extraocular movements are within normal limits. There is no nystagmus noted. There are no notable neuromotor deficits. INTEGUMENTARY: Skin is warm and dry. There are multiple tattoos to upper torso. LABORATORY: Initial white count 9.8. Two additional CBCs with white count at time of discharge at 8.1. Hemoglobin and hematocrit were stable at 12.7 and 36.5 at discharge. Platelet count 286,000 at discharge. Differential was within normal limits without shift. She had PT 12.4, INR 1.1, PT-T 29.7. She had two D-dimers, initially one in the Emergency Room that was less than 230 and one on the Medical/Surgical Floor prior to discharge was less than 200. Initial chemistries did show low potassium of 3.1. After correction of her magnesium levels and IV fluids with potassium replacement, at time of discharge her potassium was 3.7. Sodium was normal at 135. All other electrolytes were within normal limits. At time of discharge, creatinine was less than 0.4, BUN 9 , calcium 8.8. Initial magnesium on admission was 1.5. After 2 gram magnesium replacement, it normalized to 1.8. She had four sets of troponins, initially, at 3 hours, 6 hours and then again at time of discharge, all were less than 0.02. CPK was also within normal limits. Liver functions were all within normal limits. Serum HCG was negative. Lipid profile showed an elevated triglyceride 378 with cholesterol 220, LDL 134, HDL 37. Amylase 39, lipase 22. Toxicology screen showed carbamazepine less than 2.0. H. pylori antibody test was negative. Urinalysis was never submitted, nor was urine drug screen. RADIOLOGY: Initially, she had a chest x-ray in the Emergency Department and per radiology interpretation showed no evidence of acute cardiopulmonary disease. After admission to the Medical/Surgical Floor, she had a repeat chest x-ray on the morning of discharge and per radiology interpretation that x-ray indicated there was small lung volume, similar to previous day, heart size unchanged. There was once again prominence noted of the pulmonary vasculature which could be compatible with overload. This was followed up with CTA of the chest/thorax and per radiology interpretation showed CT evidence of central pulmonary embolism, distal dilation was limited. There was significant dilation of the main pulmonary artery which can indicate pulmonary arterial hypertension or possible pulmonary artery stenosis and post stenotic dilation. Recommendations were for an echocardiogram and cardiology consult. There was mild atherosclerosis noted, but there was no CT evidence of acute abdominal or pelvis processes noted along with the CT of the abdomen and pelvis with contrast. She had a CT of the abdomen and pelvis with contrast and per radiology interpretation there was note there was fatty infiltrations along the falciform ligament of the liver. Gallbladder, pancreas, spleen, adrenal glands, kidneys, bladder, uterus, and adnexa were all unremarkable. Stomach, small bowel, colon, appendix were unremarkable. There was no free air or free fluid. There was no pathological enlargement of the abdominal or pelvic lymphadenopathy. Per final interpretation, there was no CT evidence of a central pulmonary embolism and again noted dilation of the main pulmonary artery which again could represent pulmonary hypertension, possible pulmonary artery stenosis or post stenotic dilation. Again, recommend echocardiogram and cardiology consult. Final interpretation with no significant acute abdominal or pelvic process. EKGs times four were done. Initial EKG on admission showed sinus tachycardia without any ST changes. On admission to the Medical/Surgical Floor, that EKG showed sinus tachycardia with no obvious ST changes and final EKG prior to discharge showed no ST elevation, no T-wave inversions, no ischemic changes noted, no significant change from admission initially in the Emergency Room compared to that EKG. HOSPITAL COURSE: Ms. Bullock is a 31-year-old, female who was placed in observation as per history of present illness from the Emergency Room to the Medical/Surgical Floor for concerns for chest pain and need for close monitoring of telemetry. She was initially quite anxious in the Emergency Department and given Valium which did result in significant decrease in her symptoms. She was placed in observation and at the time of admission was without any significant pain and was somewhat still anxious. In the morning, prior to discharge, the patient noted she was having pain in her chest that was sharp in nature after she got up to ambulate to the bathroom. She was also noted to be in a severe anxiety state, hyperventilating, crying, and holding her chest. She was given medications for anxiety to include Ativan, Dilaudid for pain, after she was given a nitroglycerin which did not result in any significant change in her pain levels. After a time, the patient was able to settle down after the Ativan and reported that as long as she did not get up and move around, she was not having any pain after the Dilaudid kicked in. On reexamination of the patient, she had normal breath sounds with no rales, rhonchi or wheezing noted. There were no murmurs. She was not having any abdominal pains and she was much more relaxed. She went to CT scan without any complication to have a CTA of the chest as well as abdomen. Please refer to the final reports for full details of those findings. Every effort was made to consult with cardiology prior to discharge and was able to talk to Dr. Vo and review the case with him and possibly to have transfer for further evaluation. However, after reviewing the case, Dr. Vo felt the patient was not having pain related to her heart and recommended that we continue with observation and do CT of the chest to further rule out any possible pulmonary embolism or other etiology of her pain. Again, she did go to CT after she calmed down and cooperated and did well. When she came back from CT, those results were made available at which time she became quite anxious again and requested that she be discharged from the hospital as she was going to seek medical care at another facility. Again, the patient was without any significant pain until she was seen in exam and discussed the results when she became quite anxious. It was noted that the patient did have episodes when she would not be hurting until family members were present in the room. She never was in any acute distress, never had any nausea or vomiting. At time of discharge, the patient was stable and advised to return to the Emergency Department should she have any return of her symptoms or to seek further attention. I made an effort to have a cardiology consultation in followup in the outpatient setting, but she refused this and wished to be discharged. DISCHARGE DIAGNOSES: 1. Chest pain, unknown etiology with extensive cardiac evaluation with cardiac enzymes times four as well as CTA of the chest to rule out pulmonary embolism with EKG showing no acute changes with pain being at times being reproducible and elicited by acute anxiety. 2. Severe anxiety state with panic attack, possibly exacerbating #1. 3. History of hypertension. 4. Type 1 diabetes mellitus. 5. History of seizure disorder, currently on carbamazepine, but is not compliant with medications. 6. History of anxiety and depression disorder taking multiple medications. 7. History of chronic low back pain. 8. History of asthma. 9. Rheumatoid arthritis. 10. Questionable pulmonary hypertension as noted on CTA of chest. 12. Electrolyte imbalance with Hypokalemia and Hypomagnesemia possibly secondary to chronic Tegretol medication. Bot corrected after replacement therapy PLAN: The patient was to be discharged initially to have followup with her primary care provider that was in [place] as well as arrangements to be made for cardiology consult for a possible echocardiogram. The patient refused efforts and requested that she be discharged and medical records be provided as she was going to seek medical attention elsewhere. At time of discharge, she was without any pain, she was stable and she was discharged to the care of her family. #[id number] [facility]
[2017-02-11] MEDS ORDERED: SIMVASTATIN 10 MG TAB PO SCH (21:00)
[2017-02-11] MEDS ORDERED: ZOLPIDEM TARTRATE 10 MG TAB PO SCH (21:00)
[2017-02-12] MEDS ORDERED: ASPIRIN TABLET 325 MG TAB PO SCH (09:00)
== END 2017-02-11 18:05 | disposition home or self-care (01) ==
LOC: ER 19:03 → MS 23:41
PROVIDERS: ADMIT Nurse Practitioner Family; ATTEND Nurse Practitioner Family
DX: R07.89 Other chest pain (principal); F41.0 Panic disorder [episodic paroxysmal anxiety]; E87.6 Hypokalemia; E83.42 Hypomagnesemia; I10 Essential (primary) hypertension; E10.9 Type 1 diabetes mellitus without complications; R06.02 Shortness of breath; R94.31 Abnormal electrocardiogram [ECG] [EKG]; G40.909 Epilepsy, unspecified, not intractable, without status epilepticus; F31.9 Bipolar disorder, unspecified; G89.29 Other chronic pain; M54.5 Low back pain; J45.909 Unspecified asthma, uncomplicated; M06.9 Rheumatoid arthritis, unspecified; F17.210 Nicotine dependence, cigarettes, uncomplicated; I28.1 Aneurysm of pulmonary artery; Z91.14 Patient's other noncompliance with medication regimen; Z79.4 Long term (current) use of insulin; Z79.51 Long term (current) use of inhaled steroids; Z79.899 Other long term (current) drug therapy; Z91.018 Allergy to other foods
CPT/HCPCS: 36415 ×5; 36416 ×3; 71010 ×2; 71275; 74177; 80048; 80053 ×2; 80061; 80156; 82150 ×2; 82550 ×4; 82553 ×4; 82948 ×4; 83690 ×2; 83735; 83880; 84484 ×4; 84703; 85025 ×3; 85379 ×2; 85610; 85730; 86317; 93005 ×5; 94760; 96365; 96372; 96375 ×2; 96376; 99284; G0378; J1815; J1885; J2060 ×2; J2270 ×5; J3360; J3475; J3480 ×2; J7030; J7040

== ENCOUNTER 2017-03-11 05:54 | Emergency (ER) | payer MEDICARE, MEDICAID ==
[2017-03-11] MEDS ORDERED: METOPROLOL TARTRATE INJ 5 MG/5 ML VIAL IV ONE (06:04)
--- NOTE | 2017-03-11 06:24 | ED.PDOC ---
History of Present Illness - General Source: patient Exam Limitations: no limitations - History of Present Illness Initial Comments: the patient is a 31-year-old female presenting to the emergency room with her significant other complaining of chest pain acute onset this morning when she got out of the shower. She reports a feeling that her heart is racing. Pain is on left side of the chest. She has had several recent similar episodes. The patient is supposed to see a new funeral service practitioner/embalmer today. 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 She has nitroglycerin patches and she took 3 nitroglycerin tablets this morning. Upon arrival she is in sinus tachycardia at a heart rate of approximately 130 bpm. She is clearly having an anxiety attack. Hands are tremulous. She is hyperventilating. She is tearful.she did check her glucose this morning it was 306. This is apparently not that unusual. Timing/Duration: 1/2 hour Severity: severe Improving Factors: nothing Worsening Factors: nothing Associated Symptoms: chest pain, shortness of breath <Riky Jin - Last Filed: 03/11/17 06:22> <Hannah Jaramillo - Last Filed: 03/11/17 07:44> - General Chief Complaint: Respiratory Problem Time Seen by Provider: 03/11/17 06:04 - History of Present Illness Allergies/Adverse Reactions: Allergies Pineapples Allergy (Unknown, Uncoded 03/11/17 06:40) Home Medications: Ambulatory Orders Carbamazepine [Tegretol] 600 mg PO BID 01/27/17 Insulin Regular (Human) [Humulin R] 0 unit SUBCU QID PRN 01/27/17 Lisinopril & Hydrochlorothiazi [Lisinopril/Hctz 20-25 mg] 1 tab PO BID 01/27/17 Lovastatin 20 mg PO DAILY 01/27/17 Amitriptyline HCl [Elavil] 25 mg PO DAILY 02/10/17 Celecoxib [Celebrex] 200 mg PO BID 02/10/17 Clonazepam 2 mg PO TID 02/10/17 Lisinopril 20 mg PO BEDTIME 02/10/17 Pregabalin [Lyrica] 100 mg PO BID 02/10/17 Acetaminophen W/ Codeine [Tylenol W/ CODEINE #3] 1 ea PO Q4HR PRN #20 02/11/17 Budesonide-Formoterol Fumarate [Symbicort 160-4.5 Mcg/Act] 1 aer IN DAILY Ciprofloxacin [Cipro] 500 mg PO BID 02/11/17 Cyclobenzaprine HCl 10 mg PO TID 02/11/17 Furosemide [Lasix] 40 mg PO BID 02/11/17 Lorcaserin HCl [Belviq] 10 mg PO DAILY 02/11/17 Magnesium 400 mg PO DAILY #30 tab 02/11/17 Metronidazole 500 mg PO BID 02/11/17 Nitroglycerin 0.4 mg Tab [Nitrostat] 1 ea SL Q5MIN PRN #1 bttl 02/11/17 Nitroglycerin Patch 0.4 mg/Hr [Nitro-Dur PATCH 0.4 mg/hour] 1 ea TOP QAM #5 patch 02/11/17 Ondansetron Odt [Zofran Odt] 8 mg PO Q6H PRN 02/11/17 Ondansetron Tab [Zofran Tab] 4 mg PO Q8H #10 tab 02/11/17 Potassium Chloride Tab [Micro-K] 10 meq PO BID #30 tab 02/11/17 Promethazine HCl 25 mg PO Q6H PRN 02/11/17 Zolpidem Tartrate 10 mg PO BEDTIME 02/11/17 Review of Systems - Review of Systems Constitutional: States: weakness EENTM: States: blurred vision - but she is crying Respiratory: States: short of breath Cardiology: States: chest pain, palpitations Gastrointestinal/Abdominal: States: no symptoms reported Genitourinary: States: no symptoms reported Musculoskeletal: States: no symptoms reported Skin: States: no symptoms reported Neurological: States: anxiety - severe, numbness - in her hands, tremors Endocrine: States: no symptoms reported All other Systems: No Change from Baseline <Riky Jin - Last Filed: 03/11/17 06:22> Past Medical History (General) - Patient Medical History Hx Seizures: Yes Hx Stroke: No Hx Asthma: Yes Hx Cardiac Disorders: Yes Hx Congestive Heart Failure: No Hx Hypertension: Yes Hx Diabetes: Yes - type 1 Hx Gastroesophageal Reflux: Yes Hx MRSA: No - Vaccination History Hx Tetanus, Diphtheria Vaccination: No Hx Influenza Vaccination: No Hx Pneumococcal Vaccination: No - Social History Hx Tobacco Use: Yes Hx Alcohol Use: No Hx Substance Use: No Hx Substance Use Treatment: No Hx Depression: Yes Hx Physical Abuse: No Hx Emotional Abuse: No - Female History Hx Last Menstrual Period: 04/26/15 Patient : - lmp unknow "I'm irregular" <Riky Jin - Last Filed: 03/11/17 06:22> Family Medical History - Family History Father Living Status: Mother Family History: No Known Living Status: Still Living <Riky Jin - Last Filed: 03/11/17 06:22> Physical Exam - Physical Exam General Appearance: Alert, Anxious Eye Exam: bilateral normal Ears, Nose, Throat: hearing grossly normal, normal ENT inspection, normal pharynx Neck: non-tender, full range of motion, supple Respiratory: chest non-tender, lungs clear, normal breath sounds, no respiratory distress, no accessory muscle use Cardiovascular/Chest: normal peripheral pulses, no edema, tachycardia - sinus tachycardia, other - very difficult to assess for any murmurs secondary to the patient crying and shaking Peripheral Pulses: radial,right: 2+, radial,left: 2+, dorsalis pedis,right: 2+, dorsalis pedis,left: 2+, posterior tibialis,right: 2+, posterior tibialis,left: 2+ Gastrointestinal/Abdominal: non tender - obese, soft Rectal Exam: deferred Back Exam: normal inspection, no CVA tenderness, no vertebral tenderness Extremity: normal range of motion, non-tender, normal inspection, no pedal edema , normal capillary refill 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 The patient initially was hypotensive from taking 3 consecutive nitroglycerin. After her blood pressures back up to 125/80 she received a small dose of Lopressor IV and a dose of Ativan IV. Laboratory work has been ordered but is pending at this time. X-ray has been ordered but is pending at this time. - Results/Orders Results/Orders: EKG shows sinus tachycardia. Rate is 133 bpm. No obvious acute ST segment changes consistent with immediate ischemia however patient's tremulousness makes this a little more difficult to interpret. Starks appears grossly normal. <Riky Jin - Last Filed: 03/11/17 06:22> - Progress Progress: 03/11/17 07:41 Patient is requesting discharge. She has a Cardiology appt @ 10:30 and wants to just go there. Initial set of cardiac enzymes are normal. Pulse is down and patient is calm. Will d/c home with Cardiology follow up. - EKG/XRAY/CT XRAY: chest - No acute process per Radiologist <Hannah Jaramillo - Last Filed: 03/11/17 07:44> Departure <Riky Jin - Last Filed: 03/11/17 06:22> - Departure Time of Disposition: 07:43 Diet: resume usual diet Activity: increase activity as tolerated <Hannah Jaramillo - Last Filed: 03/11/17 07:44> - Departure Clinical Impression: Panic attack Chest pain Qualifiers: Chest pain type: unspecified Qualified Code(s): R07.9 - Chest pain, unspecified Disposition: Discharge to Home or Self Care Condition: Good Departure Forms: ED Discharge - Pt. Copy, Patient Portal Self Enrollment Instructions: DI for Atypical Chest Pain, DI for Panic Disorder Home Medications: Ambulatory Orders Carbamazepine [Tegretol] 600 mg PO BID 01/27/17 Insulin Regular (Human) [Humulin R] 0 unit SUBCU QID PRN 01/27/17 Lisinopril & Hydrochlorothiazi [Lisinopril/Hctz 20-25 mg] 1 tab PO BID 01/27/17 Lovastatin 20 mg PO DAILY 01/27/17 Amitriptyline HCl [Elavil] 25 mg PO DAILY 02/10/17 Celecoxib [Celebrex] 200 mg PO BID 02/10/17 Clonazepam 2 mg PO TID 02/10/17 Lisinopril 20 mg PO BEDTIME 02/10/17 Pregabalin [Lyrica] 100 mg PO BID 02/10/17 Acetaminophen W/ Codeine [Tylenol W/ CODEINE #3] 1 ea PO Q4HR PRN #20 02/11/17 Budesonide-Formoterol Fumarate [Symbicort 160-4.5 Mcg/Act] 1 aer IN DAILY Ciprofloxacin [Cipro] 500 mg PO BID 02/11/17 Cyclobenzaprine HCl 10 mg PO TID 02/11/17 Furosemide [Lasix] 40 mg PO BID 02/11/17 Lorcaserin HCl [Belviq] 10 mg PO DAILY 02/11/17 Magnesium 400 mg PO DAILY #30 tab 02/11/17 Metronidazole 500 mg PO BID 02/11/17 Nitroglycerin 0.4 mg Tab [Nitrostat] 1 ea SL Q5MIN PRN #1 bttl 02/11/17 Nitroglycerin Patch 0.4 mg/Hr [Nitro-Dur PATCH 0.4 mg/hour] 1 ea TOP QAM #5 patch 02/11/17 Ondansetron Odt [Zofran Odt] 8 mg PO Q6H PRN 02/11/17 Ondansetron Tab [Zofran Tab] 4 mg PO Q8H #10 tab 02/11/17 Potassium Chloride Tab [Micro-K] 10 meq PO BID #30 tab 02/11/17 Promethazine HCl 25 mg PO Q6H PRN 02/11/17 Zolpidem Tartrate 10 mg PO BEDTIME 02/11/17
--- NOTE | 2017-03-11 06:33 | RAD ---
Procedure: XR CHEST 1 VIEW Exam Date: 03/11/2017 Ordering Provider: Riky Jin Clinical Indication: chest pain, shortness of breath, tachycardia Comparison: 02/11/2017 Findings: Cardiac silhouette: Normal Pulmonary vasculature : Normal Mediastinal contour: Normal Aortic contour: Normal Focal lung consolidation: None Pleural effusion: None Pneumothorax: None Acute bony or soft tissue abnormality: None Impression: 1. No acute abnormalities in the chest. Electronically signed by: Pa Mccormick MD 03/11/2017 6:32 AM CDT
[2017-03-11 06:41] VITALS: TEMP 97.8
[2017-03-11] MEDS ORDERED: SODIUM CHLORIDE 0.9% 1000ML 1,000 ML IVS ONE (07:24)
[2017-03-11 07:39] VITALS: BP 109/74; O2SAT 99
== END 2017-03-11 07:51 | disposition home or self-care (01) ==
LOC: ER 05:54
DX: R07.9 Chest pain, unspecified (principal); E10.9 Type 1 diabetes mellitus without complications; I10 Essential (primary) hypertension; K21.9 Gastro-esophageal reflux disease without esophagitis; F32.9 Major depressive disorder, single episode, unspecified; Z87.891 Personal history of nicotine dependence; Z79.4 Long term (current) use of insulin; Z79.899 Other long term (current) drug therapy; Z91.018 Allergy to other foods
CPT/HCPCS: 36415; 71010; 80053; 82550; 82553; 82948; 83735; 83880; 84484; 84703; 85025; 85379; 85610; 85730; 93005; J2060

== ENCOUNTER → 2017-05-08 | Outpatient (CLI) | payer MEDICARE, MEDICAID | END | disposition home or self-care (01) | LOC: LAB 16:35 | PROVIDERS: ATTEND Internal Medicine Endocrinology, Diabetes & Metabolism | DX: E10.42 Type 1 diabetes mellitus with diabetic polyneuropathy (principal) ==

== ENCOUNTER 2017-08-20 14:55 | Emergency (ER) | payer MEDICAID, MEDICARE, OTHER ==
[2017-08-20] MEDS ORDERED: ASPIRIN TABLET 325 MG TAB PO ONE (15:07)
[2017-08-20] MEDS ORDERED: SODIUM CHLORIDE 0.9% (FLUSH) 10 ML SYG IV PRN (15:07)
--- NOTE | 2017-08-20 15:09 | ED.PDOC ---
History of Present Illness - General Chief Complaint: Chest Pain/NC Stated Complaint: chest pain Time Seen by Provider: 08/20/17 15:02 Source: patient Exam Limitations: no limitations - History of Present Illness Initial Comments: Jasmin Bullock 31 y/o female brought by sheriff duarte when she complained of sharp chest pain symptoms non radiating ,no diaphoresis while she was getting a check up at one of MD's office today at about 1300 h.No nausea vomiting stated they were not able to find all her medication today.Also not taken clonazepam and tegretol for the last 2 days.Stated msplaced meds and unable to find it Timing/Duration: 4-6 hours Severity/Quality: sharp Location: central Chest Pain Radiation: no radiation Activities at Onset: emotional stress, rest Prior Chest Pain/Cardiac Workup: no prior cardiac workup Improving Factors: nothing Worsening Factors: nothing Nitro Today/Relief: 0.4 mg x 1, provided by ED Aspirin Treatment Today: provided by ED Allergies/Adverse Reactions: Allergies Pineapples Allergy (Unknown, Uncoded 03/11/17 06:40) Home Medications: Ambulatory Orders Carbamazepine [Tegretol] 600 mg PO BID 01/27/17 Insulin Regular (Human) [Humulin R] 0 unit SUBCU QID PRN 01/27/17 Lisinopril & Hydrochlorothiazi [Lisinopril/Hctz 20-25 mg] 1 tab PO BID 01/27/17 Lovastatin 20 mg PO DAILY 01/27/17 Amitriptyline HCl [Elavil] 25 mg PO DAILY 02/10/17 Celecoxib [Celebrex] 200 mg PO BID 02/10/17 Clonazepam 2 mg PO TID 02/10/17 Lisinopril 20 mg PO BEDTIME 02/10/17 Pregabalin [Lyrica] 100 mg PO BID 02/10/17 Acetaminophen W/ Codeine [Tylenol W/ CODEINE #3] 1 ea PO Q4HR PRN #20 02/11/17 Budesonide-Formoterol Fumarate [Symbicort 160-4.5 Mcg/Act] 1 aer IN DAILY Ciprofloxacin [Cipro] 500 mg PO BID 02/11/17 Cyclobenzaprine HCl 10 mg PO TID 02/11/17 Furosemide [Lasix] 40 mg PO BID 04/03/17 Lorcaserin HCl [Belviq] 10 mg PO DAILY 02/11/17 Magnesium 400 mg PO DAILY #30 tab 02/11/17 Metronidazole 500 mg PO BID 02/11/17 Nitroglycerin 0.4 mg Tab [Nitrostat] 1 ea SL Q5MIN PRN #1 bttl 02/11/17 Nitroglycerin Patch 0.4 mg/Hr [Nitro-Dur PATCH 0.4 mg/hour] 1 ea TOP QAM #5 patch 02/11/17 Ondansetron Odt [Zofran Odt] 8 mg PO Q6H PRN 02/11/17 Ondansetron Tab [Zofran Tab] 4 mg PO Q8H #10 tab 02/11/17 Potassium Chloride Tab [Micro-K] 10 meq PO BID #30 tab 02/11/17 Promethazine HCl 25 mg PO Q6H PRN 02/11/17 Zolpidem Tartrate 10 mg PO BEDTIME 02/11/17 Carbamazepine [Tegretol] 600 mg PO BID #30 tab 08/20/17 Clonazepam 2 mg PO TID #10 tab 08/20/17 Review of Systems - Review of Systems Constitutional: States: no symptoms reported EENTM: States: no symptoms reported Respiratory: States: no symptoms reported Cardiology: States: see HPI Gastrointestinal/Abdominal: States: no symptoms reported Genitourinary: States: no symptoms reported Musculoskeletal: States: no symptoms reported Skin: States: no symptoms reported Neurological: States: see HPI Endocrine: States: no symptoms reported Hematologic/Lymphatic: States: no symptoms reported Past Medical History (General) - Patient Medical History Hx Seizures: Yes Hx Stroke: No Hx Dementia: No Hx Asthma: Yes Hx of COPD: No Hx Cardiac Disorders: Yes Hx Congestive Heart Failure: No Hx Pacemaker: No Hx Hypertension: Yes Hx Thyroid Disease: No Hx Diabetes: Yes - type 1 Hx Gastroesophageal Reflux: Yes Hx Renal Disease: No Hx Cancer: No Hx of HIV: No Hx Hepatitis C: No Hx MRSA: No Surgical History: no surgical history - Vaccination History Hx Tetanus, Diphtheria Vaccination: No Hx Influenza Vaccination: No Hx Pneumococcal Vaccination: No - Social History Hx Tobacco Use: Yes Hx Chewing Tobacco Use: No Hx Alcohol Use: No Hx Substance Use: No Hx Substance Use Treatment: No Hx Depression: Yes Hx Physical Abuse: No Hx Emotional Abuse: No Hx Suspected Abuse: No - Female History Hx Last Menstrual Period: 07/30/17 Patient : No - lmp unknow "I'm irregular" Family Medical History - Family History Father Living Status: Mother Family History: No Known Living Status: Still Living Physical Exam - Physical Exam General Appearance: Alert, No apparent distress Eyes, Ears, Nose, Throat Exam: PERRL/EOMI, normal ENT inspection, pharynx normal Neck: non-tender, supple Respiratory: chest non-tender, lungs clear, normal breath sounds Cardiovascular/Chest: normal peripheral pulses, regular rate, rhythm, no murmur Peripheral Pulses: radial,right: 2+, radial,left: 2+, dorsalis pedis,right: 2+, dorsalis pedis,left: 2+ Gastrointestinal/Abdominal: normal bowel sounds, non tender, soft, no organomegaly Neurologic: no motor/sensory deficits, alert, normal mood/affect, oriented x 3 Skin Exam: normal color, warm/dry Progress - Progress Progress: 08/20/17 16:17 Last Vital Signs Temp 95.6 F L 08/20/17 15:07 Pulse 81 08/20/17 15:35 Resp 18 08/20/17 15:35 BP 93/64 08/20/17 15:35 Pulse Ox 97 08/20/17 15:35 - Results/Orders Results/Orders: Laboratory Tests 08/20/17 08/20/17 08/20/17 15:25 15:25 17:10 WBC 8.5 RBC 4.22 Hgb 13.4 Hct 38.3 MCV 90.6 MCH 31.8 H MCHC 35.1 RDW 13.8 Plt Count 328 MPV 7.9 Absolute Neuts (auto) 5.90 Absolute Lymphs (auto) 2.20 Absolute Monos (auto) 0.30 Absolute Eos (auto) 0.00 Absolute Basos (auto) 0.00 Neutrophils % 69.2 Lymphocytes % 26.5 Monocytes % 3.7 Eosinophils % 0.3 L Basophils % 0.3 PT 11.4 INR 1.010 PTT (SP) 26.2 D-Dimer, Quantitative < 200 Sodium 132 L Potassium 3.4 L Chloride 93 L Carbon Dioxide 30 Anion Gap 12.4 BUN 14 Creatinine 0.56 L BUN/Creatinine Ratio 25.0 H Random Glucose 312 H Serum Osmolality 276.9 Calcium 9.2 Magnesium 1.9 Total Bilirubin 0.3 Direct Bilirubin < 0.1 Indirect Bilirubin 0.2 AST 12 ALT 12 Alkaline Phosphatase 76 Creatine Kinase 21 L CK-MB (CK-2) 0.4 CK-MB (CK-2) % Not Reportable Troponin I < 0.02 < 0.02 B-Natriuretic Peptide < 5.0 Serum Total Protein 7.6 Albumin 4.3 - EKG/XRAY/CT EKG: Sinus, no ST T wave changes Comments: HEART rate-95 XRAY: chest - no acute abnormalities - Additional EKG/XRAY/Consults EKG #2: Sinus, no ST T wave changes Comments: heart rate-76 Departure - Departure Clinical Impression: History of tonic-clonic seizures Chest pain Qualifiers: Chest pain type: unspecified Qualified Code(s): R07.9 - Chest pain, unspecified Diabetes mellitus Qualifiers: Diabetes mellitus type: type 1 Diabetes mellitus complication status: with unspecified complications Qualified Code(s): E10.8 - Type 1 diabetes mellitus with unspecified complications Time of Disposition: 17:38 Disposition: Skilled Nursing Condition: Fair Departure Forms: ED Discharge - Pt. Copy, Patient Portal Self Enrollment Prescriptions: Carbamazepine [Tegretol] 600 mg PO BID #30 tab Clonazepam 2 mg PO TID #10 tab Home Medications: Ambulatory Orders Carbamazepine [Tegretol] 600 mg PO BID 01/27/17 Insulin Regular (Human) [Humulin R] 0 unit SUBCU QID PRN 01/27/17 Lisinopril & Hydrochlorothiazi [Lisinopril/Hctz 20-25 mg] 1 tab PO BID 01/27/17 Lovastatin 20 mg PO DAILY 01/27/17 Amitriptyline HCl [Elavil] 25 mg PO DAILY 02/10/17 Celecoxib [Celebrex] 200 mg PO BID 02/10/17 Clonazepam 2 mg PO TID 02/10/17 Lisinopril 20 mg PO BEDTIME 02/10/17 Pregabalin [Lyrica] 100 mg PO BID 02/10/17 Acetaminophen W/ Codeine [Tylenol W/ CODEINE #3] 1 ea PO Q4HR PRN #20 02/11/17 Budesonide-Formoterol Fumarate [Symbicort 160-4.5 Mcg/Act] 1 aer IN DAILY Ciprofloxacin [Cipro] 500 mg PO BID 02/11/17 Cyclobenzaprine HCl 10 mg PO TID 02/11/17 Furosemide [Lasix] 40 mg PO BID 02/11/17 Lorcaserin HCl [Belviq] 10 mg PO DAILY 02/11/17 Magnesium 400 mg PO DAILY #30 tab 02/11/17 Metronidazole 500 mg PO BID 02/11/17 Nitroglycerin 0.4 mg Tab [Nitrostat] 1 ea SL Q5MIN PRN #1 bttl 02/11/17 Nitroglycerin Patch 0.4 mg/Hr [Nitro-Dur PATCH 0.4 mg/hour] 1 ea TOP QAM #5 patch 02/11/17 Ondansetron Odt [Zofran Odt] 8 mg PO Q6H PRN 02/11/17 Ondansetron Tab [Zofran Tab] 4 mg PO Q8H #10 tab 02/11/17 Potassium Chloride Tab [Micro-K] 10 meq PO BID #30 tab 02/11/17 Promethazine HCl 25 mg PO Q6H PRN 02/11/17 Zolpidem Tartrate 10 mg PO BEDTIME 02/11/17 Carbamazepine [Tegretol] 600 mg PO BID #30 tab 08/20/17 Clonazepam 2 mg PO TID #10 tab 08/20/17 Additional Instructions: Follow up with primary MD for refill of other medications
[2017-08-20 15:14] VITALS: TEMP 95.6
--- NOTE | 2017-08-20 15:27 | RAD ---
EXAM DESCRIPTION: Chest,1 View CLINICAL HISTORY: Chest pain FINDINGS/ IMPRESSION: Comparison 03/11/2017 Normal cardiomediastinal silhouette. No edema, infiltrate or effusion. No pneumothorax Electronically signed by: Lionel Nation MD 08/20/2017 3:26 PM CDT
[2017-08-20] MEDS ORDERED: carBAMazepine 200 MG TAB PO ONE (16:11)
[2017-08-20] MEDS ORDERED: SODIUM CHLORIDE 0.9% 1000ML 1,000 ML IVS ONE (16:13)
[2017-08-20] MEDS ORDERED: INSULIN, REG.(HUMAN) 100 U/ML VIAL SUBCU ONE (16:59)
[2017-08-20 17:51] VITALS: BP 91/63; O2SAT 96
== END 2017-08-20 18:08 ==
LOC: ER 14:55
DX: R07.9 Chest pain, unspecified (principal); E10.8 Type 1 diabetes mellitus with unspecified complications; I10 Essential (primary) hypertension; K21.9 Gastro-esophageal reflux disease without esophagitis; G40.909 Epilepsy, unspecified, not intractable, without status epilepticus; Z79.899 Other long term (current) drug therapy; Z79.4 Long term (current) use of insulin; Z87.891 Personal history of nicotine dependence
CPT/HCPCS: 36415; 71010; 80048; 80076; 82550; 82553; 83880; 84484; 85025; 85379; 85610; 85730; 93005; J7030

== ENCOUNTER 2017-10-17 10:09 | Emergency (ER) | payer MEDICAID, MEDICARE ==
--- NOTE | 2017-10-17 10:30 | ED.PDOC ---
History of Present Illness - General Chief Complaint: ENT Problem Stated Complaint: decreased hearing Time Seen by Provider: 10/17/17 10:18 Source: patient Exam Limitations: no limitations - History of Present Illness Initial Comments: the patient is a 31-year-old female presenting to the emergency room secondary to a feeling of decreased hearing in both ears. She does have a runny nose and a very mild sore throat. She also does have a small pimple to the posterior aspect of her neck that has been irritating her for the last few days. No fevers. No shortness of breath. No chest pain. She has not been following her blood sugars very well for the last couple of days. No other new symptoms. She does have a long list of chronic complaints. Timing/Duration: 24 hours Severity: mild Improving Factors: nothing Worsening Factors: nothing Associated Symptoms: malaise Allergies/Adverse Reactions: Allergies Pineapples Allergy (Unknown, Uncoded 03/11/17 06:40) Home Medications: Ambulatory Orders Carbamazepine [Tegretol] 600 mg PO BID 01/27/17 Insulin Regular (Human) [Humulin R] 0 unit SUBCU QID PRN 01/27/17 Lisinopril & Hydrochlorothiazi [Lisinopril/Hctz 20-25 mg] 1 tab PO BID 01/27/17 Lovastatin 20 mg PO DAILY 01/27/17 Amitriptyline HCl [Elavil] 25 mg PO DAILY 02/10/17 Celecoxib [Celebrex] 200 mg PO BID 02/10/17 Clonazepam 2 mg PO TID 02/10/17 Lisinopril 20 mg PO BEDTIME 02/10/17 Pregabalin [Lyrica] 100 mg PO BID 02/10/17 Acetaminophen W/ Codeine [Tylenol W/ CODEINE #3] 1 ea PO Q4HR PRN #20 02/11/17 Budesonide-Formoterol Fumarate [Symbicort 160-4.5 Mcg/Act] 1 aer IN DAILY Ciprofloxacin [Cipro] 500 mg PO BID 02/11/17 Cyclobenzaprine HCl 10 mg PO TID 02/11/17 Furosemide [Lasix] 40 mg PO BID 02/11/17 Lorcaserin HCl [Belviq] 10 mg PO DAILY 02/11/17 Magnesium 400 mg PO DAILY #30 tab 02/11/17 Metronidazole 500 mg PO BID 02/11/17 Nitroglycerin 0.4 mg Tab [Nitrostat] 1 ea SL Q5MIN PRN #1 bttl 02/11/17 Nitroglycerin Patch 0.4 mg/Hr [Nitro-Dur PATCH 0.4 mg/hour] 1 ea TOP QAM #5 patch 02/11/17 Ondansetron Odt [Zofran Odt] 8 mg PO Q6H PRN 02/11/17 Ondansetron Tab [Zofran Tab] 4 mg PO Q8H #10 tab 02/11/17 Potassium Chloride Tab [Micro-K] 10 meq PO BID #30 tab 02/11/17 Promethazine HCl 25 mg PO Q6H PRN 02/11/17 Zolpidem Tartrate 10 mg PO BEDTIME 02/11/17 Carbamazepine [Tegretol] 600 mg PO BID #30 tab 08/20/17 Clonazepam 2 mg PO TID #10 tab 08/20/17 Sulfa/Trimeth 800/160 (Ds) Tab [Bactrim DS Tab] 1 ea PO BID #6 tab 10/17/17 Review of Systems - Review of Systems Constitutional: States: malaise EENTM: States: nose congestion, throat pain - mild Respiratory: States: cough - clearing cough only Cardiology: States: no symptoms reported Gastrointestinal/Abdominal: States: no symptoms reported Genitourinary: States: no symptoms reported Musculoskeletal: States: no symptoms reported Skin: States: see HPI Neurological: States: see HPI - chronic peripheral neuropathy Endocrine: States: no symptoms reported Hematologic/Lymphatic: States: no symptoms reported All other Systems: No Change from Baseline Past Medical History (General) - Patient Medical History Hx Seizures: Yes Hx Stroke: No Hx Dementia: No Hx Asthma: Yes Hx of COPD: No Hx Cardiac Disorders: Yes Hx Congestive Heart Failure: No Hx Pacemaker: No Hx Hypertension: Yes Hx Thyroid Disease: No Hx Diabetes: Yes - type 1 Hx Gastroesophageal Reflux: Yes Hx Renal Disease: No Hx Cancer: No Hx of HIV: No Hx Hepatitis C: No Hx MRSA: No - Vaccination History Hx Tetanus, Diphtheria Vaccination: No Hx Influenza Vaccination: No Hx Pneumococcal Vaccination: No - Social History Hx Tobacco Use: Yes Hx Chewing Tobacco Use: No Hx Alcohol Use: No Hx Substance Use: No Hx Substance Use Treatment: No Hx Depression: Yes Hx Physical Abuse: No Hx Emotional Abuse: No Hx Suspected Abuse: No - Female History Hx Last Menstrual Period: 07/30/17 Patient : No - lmp unknow "I'm irregular" Family Medical History - Family History Father Living Status: Mother Family History: No Known Living Status: Still Living Physical Exam - Physical Exam General Appearance: Alert, Comfortable, No apparent distress Eye Exam: bilateral normal Ears, Nose, Throat: hearing grossly normal, pharyngeal erythema - very mild, other - there is fluid, clear fluid behind both tympanic membranes. No evidence of overt bacterial infection. Ear canals are otherwise clear. Neck: full range of motion Respiratory: lungs clear, normal breath sounds, no respiratory distress, no accessory muscle use Cardiovascular/Chest: normal peripheral pulses, regular rate, rhythm, no edema Peripheral Pulses: radial,right: 2+, radial,left: 2+, dorsalis pedis,right: 2+, dorsalis pedis,left: 2+ Gastrointestinal/Abdominal: non tender, soft Rectal Exam: deferred Back Exam: no CVA tenderness, no vertebral tenderness Extremity: normal range of motion, non-tender, no pedal edema, normal capillary refill Neurologic: borematic operator II-XII nml as tested, no motor/sensory deficits - hronic peripheral neuropathy, no acute changes, alert, normal mood/affect, oriented x 3 Skin Exam: normal color - with the exception of the small pimple to the posterior central neck Comments: Vital Signs - 24 hr 10/17/17 10:15 Temperature 97.3 F L Pulse Rate [ 78 left brachial] Respiratory 16 Rate Blood Pressure 129/89 [left brachial] O2 Sat by Pulse 95 Oximetry Progress - Progress Progress: 10/17/17 10:32 the patient's 31-year-old female presented to the emergency room secondary to what is either an allergic or a viral otitis media and a pustule to her posterior neck. The patient is going to be placed on 3 days of Bactrim for the pustule. The patient can take Zyrtec 1 tablet daily for the next week as well as Flonase or Rhinocort 1 spray per nostril twice daily for the next week. This will help with her symptoms. Additionally some ibuprofen may help as well. She is to keep well-hydrated. She is to follow her blood sugars more closely and use her sliding scale insulin as she knows how to control her blood sugars better. She is to follow up with her primary care doctor early next week. ER warnings were given for any significant worsening. Departure - Departure Clinical Impression: Skin pustule Otitis media Qualifiers: Otitis media type: unspecified nonsuppurative Laterality: bilateral Qualified Code(s): H65.93 - Unspecified nonsuppurative otitis media, bilateral Disposition: Discharge to Home or Self Care Condition: Fair Departure Forms: ED Discharge - Pt. Copy, Patient Portal Self Enrollment Diet: diabetic diet Activity: increase activity as tolerated Prescriptions: Sulfa/Trimeth 800/160 (Ds) Tab [Bactrim DS Tab] 1 ea PO BID #6 tab Home Medications: Ambulatory Orders Carbamazepine [Tegretol] 600 mg PO BID 01/27/17 Insulin Regular (Human) [Humulin R] 0 unit SUBCU QID PRN 01/27/17 Lisinopril & Hydrochlorothiazi [Lisinopril/Hctz 20-25 mg] 1 tab PO BID 01/27/17 Lovastatin 20 mg PO DAILY 01/27/17 Amitriptyline HCl [Elavil] 25 mg PO DAILY 02/10/17 Celecoxib [Celebrex] 200 mg PO BID 02/10/17 Clonazepam 2 mg PO TID 02/10/17 Lisinopril 20 mg PO BEDTIME 02/10/17 Pregabalin [Lyrica] 100 mg PO BID 02/10/17 Acetaminophen W/ Codeine [Tylenol W/ CODEINE #3] 1 ea PO Q4HR PRN #20 02/11/17 Budesonide-Formoterol Fumarate [Symbicort 160-4.5 Mcg/Act] 1 aer IN DAILY Ciprofloxacin [Cipro] 500 mg PO BID 02/11/17 Cyclobenzaprine HCl 10 mg PO TID 02/11/17 Furosemide [Lasix] 40 mg PO BID 02/11/17 Lorcaserin HCl [Belviq] 10 mg PO DAILY 02/11/17 Magnesium 400 mg PO DAILY #30 tab 02/11/17 Metronidazole 500 mg PO BID 02/11/17 Nitroglycerin 0.4 mg Tab [Nitrostat] 1 ea SL Q5MIN PRN #1 bttl 02/11/17 Nitroglycerin Patch 0.4 mg/Hr [Nitro-Dur PATCH 0.4 mg/hour] 1 ea TOP QAM #5 patch 02/11/17 Ondansetron Odt [Zofran Odt] 8 mg PO Q6H PRN 02/11/17 Ondansetron Tab [Zofran Tab] 4 mg PO Q8H #10 tab 02/11/17 Potassium Chloride Tab [Micro-K] 10 meq PO BID #30 tab 02/11/17 Promethazine HCl 25 mg PO Q6H PRN 02/11/17 Zolpidem Tartrate 10 mg PO BEDTIME 02/11/17 Carbamazepine [Tegretol] 600 mg PO BID #30 tab 08/20/17 Clonazepam 2 mg PO TID #10 tab 08/20/17 Sulfa/Trimeth 800/160 (Ds) Tab [Bactrim DS Tab] 1 ea PO BID #6 tab 10/17/17 Additional Instructions: the patient's 31-year-old female presented to the emergency room secondary to what is either an allergic or a viral otitis media and a pustule to her posterior neck. The patient is going to be placed on 3 days of Bactrim for the pustule. The patient can take Zyrtec 1 tablet daily for the next week as well as Flonase or Rhinocort 1 spray per nostril twice daily for the next week. This will help with her symptoms. Additionally some ibuprofen may help as well. She is to keep well-hydrated. She is to follow her blood sugars more closely and use her sliding scale insulin as she knows how to control her blood sugars better. She is to follow up with her primary care doctor early next week. ER warnings were given for any significant worsening.
[2017-10-17 10:31] VITALS: BP 129/89; TEMP 97.3; O2SAT 95
== END 2017-10-17 10:41 | disposition home or self-care (01) ==
LOC: ER 10:09
DX: H65.93 Unspecified nonsuppurative otitis media, bilateral (principal); L08.9 Local infection of the skin and subcutaneous tissue, unspecified; K21.9 Gastro-esophageal reflux disease without esophagitis; E10.9 Type 1 diabetes mellitus without complications; Z87.891 Personal history of nicotine dependence

== ENCOUNTER 2017-11-10 19:29 | Emergency (ER) | payer OTHER ==
[2017-11-10] MEDS ORDERED: carBAMazepine 200 MG TAB PO ONE (19:55)
[2017-11-10 19:57] VITALS: TEMP 97.4
[2017-11-10] MEDS ORDERED: INSULIN DETEMIR 100 UNITS/ML PEN SUBCU ONE (20:02)
[2017-11-10] MEDS ORDERED: INSULIN LISPRO 100 UNITS/ML PEN SUBCU ONE (20:02)
[2017-11-10] MEDS ORDERED: PREGABALIN 75 MG CAP PO ONE (20:03)
--- NOTE | 2017-11-10 20:11 | ED.PDOC ---
History of Present Illness - General Chief Complaint: General Stated Complaint: out of insulin Time Seen by Provider: 11/10/17 19:48 Source: patient, police Exam Limitations: no limitations - History of Present Illness Initial Comments: The patient is a 31-year-old female in custody presenting to emergency room secondary to the facility she is being held and not having insulin. They ran out of insulin and will not have any insulin until the day after tomorrow. She is feeling okay. She is having more aches and pains primarily due to not having her gabapentin. She also has a history of a seizure disorder and has not been getting her Tegretol. She has not had any seizures. Apparently her medications were left in a previous facility, and did not make the transfer with her. This is new years [place] and there are no pharmacies open and there will not be any pharmacies open tomorrow either so she was brought in for treatment before she got worse. Timing/Duration: unsure Severity: mild Improving Factors: nothing Worsening Factors: nothing Associated Symptoms: denies symptoms Allergies/Adverse Reactions: Allergies Pineapples Allergy (Unknown, Uncoded 03/11/17 06:40) Home Medications: Ambulatory Orders Insulin Regular (Human) [Humulin R] 0 unit SUBCU QID PRN 01/27/17 Lisinopril & Hydrochlorothiazi [Lisinopril/Hctz 20-25 mg] 1 tab PO BID 01/27/17 Celecoxib [Celebrex] 200 mg PO BID 02/10/17 Nitroglycerin Patch 0.4 mg/Hr [Nitro-Dur PATCH 0.4 mg/hour] 1 ea TOP QAM #5 patch 02/11/17 Carbamazepine [Tegretol] 600 mg PO BID #30 tab 08/20/17 Gabapentin 11/10/17 Review of Systems - Review of Systems Constitutional: States: no symptoms reported EENTM: States: no symptoms reported Respiratory: States: no symptoms reported Cardiology: States: no symptoms reported Gastrointestinal/Abdominal: States: no symptoms reported Genitourinary: States: no symptoms reported Musculoskeletal: States: no symptoms reported Skin: States: no symptoms reported Neurological: States: other - increased neuropathic pains Endocrine: States: no symptoms reported All other Systems: No Change from Baseline Past Medical History (General) - Patient Medical History Hx Seizures: Yes Hx Stroke: No Hx Dementia: No Hx Asthma: Yes Hx of COPD: No Hx Cardiac Disorders: Yes Hx Congestive Heart Failure: No Hx Pacemaker: No Hx Hypertension: Yes Hx Thyroid Disease: No Hx Diabetes: Yes Hx Gastroesophageal Reflux: Yes Hx Renal Disease: No Hx Cancer: No Hx of HIV: No Hx Hepatitis C: No Hx MRSA: No Surgical History: tonsillectomy - Vaccination History Hx Tetanus, Diphtheria Vaccination: No Hx Influenza Vaccination: No Hx Pneumococcal Vaccination: No - Social History Hx Tobacco Use: Yes Hx Chewing Tobacco Use: No Hx Alcohol Use: No Hx Substance Use: No Hx Substance Use Treatment: No Hx Depression: Yes Hx Physical Abuse: No Hx Emotional Abuse: No Hx Suspected Abuse: No - Female History Patient is a Female of Child Bearing Age (10 -59 yrs old): Yes Hx Last Menstrual Period: 07/30/17 Patient : No Family Medical History - Family History Father Living Status: Mother Family History: No Known Living Status: Still Living Physical Exam - Physical Exam General Appearance: Alert, Comfortable, No apparent distress, Other - the patient is smiling and interactive Eye Exam: bilateral normal Ears, Nose, Throat: hearing grossly normal, normal ENT inspection, normal pharynx Neck: full range of motion, supple Respiratory: lungs clear, normal breath sounds, no respiratory distress, no accessory muscle use Cardiovascular/Chest: normal peripheral pulses, regular rate, rhythm, no edema Peripheral Pulses: radial,right: 2+, radial,left: 2+, dorsalis pedis,right: 2+, dorsalis pedis,left: 2+ Gastrointestinal/Abdominal: non tender, soft Rectal Exam: deferred Back Exam: normal inspection, no CVA tenderness, no vertebral tenderness Extremity: normal range of motion, non-tender, normal inspection, no pedal edema , normal capillary refill Neurologic: ceo ziff davis II-XII nml as tested, alert, normal mood/affect, oriented x 3 Skin Exam: normal color Comments: Vital Signs - 24 hr 11/10/17 19:54 Temperature 97.4 F L Pulse Rate [ 83 Right] Respiratory 18 Rate Blood Pressure 150/99 [Left Arm] Progress - Progress Progress: 11/10/17 20:12 the patient's 31-year-old female inmate presenting secondary to lack medications at the facility that she is being held at due to difficulties from a transfer. The patient does have an elevated blood sugar. Based on her routine daily doses and the current blood sugar she is given 10 units of insulin lispro and 25 units of Levemir. She will need to have her blood sugars checked frequently. if her medications have not arrived at the facility by tomorrow evening she may need another visit to the emergency room to get dosed again for her blood sugars to prevent the onset of DKA. There is no clinical evidence of DKA at this time. She was given a dose of her Lyrica and Tegretol as well to help prevent any complications from seizure activity. She is to follow up with the facility care provider. - Results/Orders Results/Orders: fingerstick blood sugar was 343. Her average blood sugars according to her running approximately 200. Departure - Departure Clinical Impression: Hyperglycemia Disposition: Longterm Condition: Fair Departure Forms: ED Discharge - Pt. Copy, Patient Portal Self Enrollment Instructions: Type 1 Diabetes Diet: diabetic diet Activity: increase activity as tolerated Home Medications: Ambulatory Orders Insulin Regular (Human) [Humulin R] 0 unit SUBCU QID PRN 01/27/17 Lisinopril & Hydrochlorothiazi [Lisinopril/Hctz 20-25 mg] 1 tab PO BID 01/27/17 Celecoxib [Celebrex] 200 mg PO BID 02/10/17 Nitroglycerin Patch 0.4 mg/Hr [Nitro-Dur PATCH 0.4 mg/hour] 1 ea TOP QAM #5 patch 02/11/17 Carbamazepine [Tegretol] 600 mg PO BID #30 tab 08/20/17 Gabapentin 11/10/17 Additional Instructions: the patient's 31-year-old female inmate presenting secondary to lack medications at the facility that she is being held at due to difficulties from a transfer. The patient does have an elevated blood sugar. Based on her routine daily doses and the current blood sugar she is given 10 units of insulin lispro and 25 units of Levemir. She will need to have her blood sugars checked frequently. if her medications have not arrived at the facility by tomorrow evening she may need another visit to the emergency room to get dosed again for her blood sugars to prevent the onset of DKA. There is no clinical evidence of DKA at this time. She was given a dose of her Lyrica and Tegretol as well to help prevent any complications from seizure activity. A Nitro-Dur patch was also placed as per her routine medications that she has not received today. She is to follow up with the facility care provider.
[2017-11-10] MEDS ORDERED: NITROGLYCERIN 0.4 MG/HR PATCH TOP ONE (20:18)
[2017-11-10 20:50] VITALS: BP 140/88
== END 2017-11-10 20:49 ==
LOC: ER 19:29
DX: E11.65 Type 2 diabetes mellitus with hyperglycemia (principal); G40.909 Epilepsy, unspecified, not intractable, without status epilepticus; I10 Essential (primary) hypertension; Z87.891 Personal history of nicotine dependence; Z79.4 Long term (current) use of insulin; Z79.899 Other long term (current) drug therapy
CPT/HCPCS: 36416; 82948; J1815